=== PATIENT | female | born 1950 | race Caucasian/White ===

== ENCOUNTER 2021-08-02 10:13 | Outpatient (REF) | payer OTHER, SELFPAY ==
--- NOTE | ~2021-08-02 | US_ITS ---
EXAMINATION: US ABDOMEN COMPLETE CLINICAL INFORMATION: Cirrhosis of liver. COMPARISON: Ultrasound abdomen 08/29/2018. Renal ultrasound 02/26/2018. CT abdomen and pelvis 04/08/2010. TECHNIQUE: Real-time imaging of the abdominal viscera. FINDINGS: PANCREAS: Normal. ABDOMINAL AORTA: The proximal, mid, and distal segments are normal in caliber. INFERIOR VENA CAVA: Visualized portions are normal. LIVER: The liver is small measuring 12.2 cm in length. The liver contour is normal. No focal hepatic lesion. There is no intrahepatic biliary duct dilatation seen. Small varices are suspected along the left lobe of liver. Normal hepatopedal flow seen in the middle portal vein. GALLBLADDER: Surgically absent. COMMON BILE DUCT: Normal in caliber measuring 0.4 cm in diameter. RIGHT KIDNEY: There are prominent pyramids. No hydronephrosis. No renal calculi or focal parenchymal lesions. The kidney measures 8.5 cm in maximum dimension. LEFT KIDNEY: There are prominent pyramids. No hydronephrosis. No renal calculi or focal parenchymal lesions. The kidney measures 9.2 cm in maximum dimension. SPLEEN: Normal. The spleen measures 9.5 cm in maximum dimension. FREE FLUID: None. ADDITIONAL FINDINGS: Small varices along the left hepatic lobe suspected. US/US abdomen complete IMPRESSION: Bilateral prominent renal pyramids. Small liver.
== END 2021-08-02 10:14 | disposition home or self-care (01) ==
LOC: HO.US 10:13
PROVIDERS: PCP Internal Medicine Geriatric Medicine; Visit Provider Internal Medicine Geriatric Medicine
DX: K74.60 Unspecified cirrhosis of liver (principal)
CPT/HCPCS: 76700

== ENCOUNTER 2022-05-01 16:04 | Emergency (ER) | payer OTHER, SELFPAY ==
--- NOTE | ~2022-05-01 | CT_ITS ---
EXAMINATION: CT ABDOMEN AND PELVIS WITH CONTRAST CLINICAL INFORMATION: abd pain COMPARISON: 04/08/2010 TECHNIQUE: Multidetector volumetric imaging was performed from the superior aspect of the liver through the pubic symphysis following administration of 85 mL Omnipaque 300 intravenous contrast. Sagittal and coronal reformatted images were obtained on the technologist workstation.. This CT examination was performed using dose optimization techniques as appropriate, variously including the following: *Automated exposure control *Adjustment of mA and/or kV according to patient size (this includes techniques or standardized protocols for targeted exams where dose is matched to indication/reason for exam; i.e. extremities or head) *Use of iterative reconstruction technique DLP: 507 mGy-cm FINDINGS: LUNG BASES: The visualized lung bases are unremarkable. LIVER, GALLBLADDER, AND BILIARY TREE: The liver is normal in size, shape, and attenuation. Small low-attenuation subcentimeter cyst in segment 7 of the liver. No focal hepatic lesion or biliary ductal dilatation is present. The gallbladder is not visualized and presumably surgically absent PANCREAS: Unremarkable. SPLEEN: Unremarkable. ADRENAL GLANDS: Unremarkable. KIDNEYS AND URETERS: The kidneys are normal in size, shape, and attenuation. No hydronephrosis, hydroureter, or calculi seen. No perinephric stranding. BLADDER: Unremarkable. GASTROINTESTINAL TRACT: Extensive colonic diverticulosis is seen more so in the sigmoid colon. Rectosigmoid colon are decompressed. I do not appreciate any pericolonic inflammatory changes to suggest diverticulitis. Visualized small bowel is unremarkable. Stomach is decompressed and unremarkable ABDOMINAL WALL: No significant hernia is appreciated. LYMPHOVASCULAR STRUCTURES: Vascular calcification within the aorta iliac system. Incidental retroaortic left renal vein PELVIC VISCERA: Surgically absent OSSEOUS STRUCTURES: Postoperative changes in the lower lumbar spine again noted CT/CT abdomen pelvis w IV con IMPRESSION: Chronic appearing and postoperative changes as described. I do not appreciate any acute intra-abdominal process.
--- NOTE | 2022-05-01 16:10 | ED.ABDPAIN ---
HPI - Abdominal Pain General Chief Complaint: Abdominal Pain Stated Complaint: ABD PAIN X2 DAYS,DIARRHEA,HIGH BP 197/94 PER EMS Time Seen by Provider: 05/01/22 16:07 Source: patient Mode of arrival: ambulatory Limitations: other (poor historian ) History of Present Illness HPI narrative: This is a 71 year old female history of HLD, HTN, GERD, anxiety, depression, presents via ambulance for nausea, diarrhea ( brown, pure liquid) and LUQ pain X2 days. Reports pain is 8/10, constant in nature non radiating. She tells me she has not eaten anything out of the ordinary and she has not been around any sick contacts. Denies atbx use recently. Denies fevers, chills, cp, sob, vomiting, headache, vission changes, dizziness and weakness. Related Data Previous Rx's Medication Instructions Recorded loperamide 2 mg capsule 2 mg PO Q6H PRN loose stool #30 05/01/22 (Anti-Diarrheal (loperamide)) caps Allergies Allergy/AdvReac Type Severity Reaction Status Date / Time lisinopril [LISINOPRIL] Allergy Intermediate ITCHING Unverified 12/03/19 16:21 polyethylene glycol 3350 Allergy Intermediate RASH Unverified 12/03/19 16:21 [From MIRALAX] valsartan [From DIOVAN] Allergy Intermediate HEADACHE Unverified 12/03/19 16:21 ascorbic acid [Ascorbic Acid] Allergy Mild RASH Unverified 12/03/19 16:21 Sulfa (Sulfonamide Allergy Unknown UNKNOWN Unverified 12/03/19 16:21 Antibiotics) Sulfacet-R Allergy Unknown Uncoded 12/15/18 00:00 Review of Systems Review of Systems Constitutional : No Weight loss, No Fever, No Chills, No Fatigue, No Malaise ENT/Mouth : No sore throat, No Rhinorrhea Eyes: No Eye Pain, No Swelling, No Redness Cardiovascular : No Chest Pain, No SOB, No Dyspnea on Exertion, No Orthopnea, No Edema, No Palpitations Respiratory : No Cough, No Sputum, No Wheezing Gastrointestinal : + Nausea, No Vomiting, + Diarrhea, No Constipation, + abdominal Pain, No Hematochezia, No Melena Genitourinary : No Dysuria, No Urinary Frequency, No Hematuria, Musculoskeletal : No joint pain, No Myalgias, No Joint Swelling Skin : No Skin Lesions, No rash Neuro : No Weakness, No Numbness, No Dizziness, No Headache Psych : No Anxiety/Panic, No Depression All other systems reviewed and are negative Yes all other systems are reviewed and are negative [facility] Past Medical History Attestation statement: The following information was validated with the patient. Source: old records reviewed and nursing notes reviewed Social History Social History Advance Directives: No Advance Directives Information Provided: No Physical Exam ED Vital Signs: Vital Signs - 24 hr 05/01/22 19:20 Temperature 97.8 F Pulse Rate 66 Respiratory Rate 18 Blood Pressure 169/78 H Pulse Oximetry 100 Oxygen Delivery Method Room Air BMI result Body Mass Index 23.8 vss Appearance: Alert.? Oriented X3.? No acute distress.? Head: Normocephalic, atraumatic, no step-offs or deformities Eyes: Pupils equal, round and reactive to light.? Neck: Normal inspection.? Neck supple.? CVS: Normal heart rate and rhythm.? Pulses normal.? Respiratory: No respiratory distress.? Breath sounds normal.? Abdomen: Soft and + diffuse tenderness.? Skin: Skin warm and dry.? Normal skin color.? Normal skin turgor.? Extremities: No lower extremity edema.? No calf ttp. 5/5 strength to bilateral upper and lower extremities Back: No midline tenderness, no C-spine tenderness, full range of motion, no CVA tenderness bilaterally Neuro: Oriented X 3.? No motor deficit.? No sensory deficit. CN 2-12 intact Course Reevaluation(s) Reevaluation #1: Patient's CBC appears to be within normal limits. Chemistry with slightly low sodium however receiving IV fluids at this time. Transaminases slightly elevated however around patient's baseline. Normal lipase unlikely that this is pancreatitis. And UA without infection. COVID negative. CT of the abdomen pelvis with chronic appearing and postoperative changes. No acute intra-abdominal process is identified. Patient feeling slightly better after morphine. Will continue to hydrate and re-evaluate as well as a p.o. challenge. Time: 19:43 Medical Decision Making Medical Decision Making [facility] Narrative: 1612 71 year old female presents w/ nausea, diarrhea, abd pain 2 days. No sick contacts PE w/ diffuse abd tenderness. Normoactive bowel sounds throughout Likely viral. Unlikely diverticulitis, pancreatitis, cholecystitis, appendicitis or acute abdomen Plan- labs,urine, imaging Differential Diagnosis Differential Diagnoses: The differential diagnosis associated with the presentation includes Likely viral. Unlikely diverticulitis, pancreatitis, cholecystitis, appendicitis or acute abdomen Admission/Observation Consideration of admission/observation: Escalation of care including admission/observation considered Lab Data 05/01/22 16:27 05/01/22 16:27 Labs: Lab Results 05/01/22 05/01/22 05/01/22 Range/Units 16:27 16:27 16:27 WBC 7.3 (4.8-10.8) X10*3/uL RBC 4.89 (4.20-5.50) X10*6/uL Hgb 14.4 (12.0-16.0) g/dl Hct 41.4 (37.0-47.0) % MCV 84.7 (80.0-98.0) fL MCH 29.4 (27.0-33.0) pg MCHC 34.8 (31.0-35.0) g/dl RDW 12.3 (11.0-16.0) % Plt Count 185 (160-400) X10*3/uL MPV 9.9 (9.4-12.3) fL Immature Gran % (Auto) 1.4 H (0.0-0.4) % Neut % (Auto) 73.8 H (45-73) % Lymph % (Auto) 18.5 L (20-40) % Ralls % (Auto) 6.1 (2-11) % Eos % (Auto) 0.1 (0-4) % Baso % (Auto) 0.1 (0-2) % Lymph # (Auto) 1.3 (1.2-4.9) X10*3/uL Ralls # (Auto) 0.4 (0.1-1.2) X10*3/uL Eos # (Auto) 0.0 (0.0-0.4) X10*3/uL Baso # (Auto) 0.0 (0.0-0.2) X10*3/uL Abs Immat Gran (auto) 0.10 H (0.00-0.03) X10*3/uL Absolute Neuts (auto) 5.4 (2.0-8.3) x10*3/uL Absolute Nucleated RBC 0.000 (0.0-0.012) X10*3/uL Nucleated RBC % (auto) 0.0 (0.0-0.2) /100WBC Sodium 133 L (135-145) mmol/L Potassium 3.5 (3.3-5.1) mmol/L Chloride 96 (96-108) mmol/L Carbon Dioxide 25 (22-29) mmol/L Anion Gap 16 (12-20) BUN 21 H (9-16) mg/dL Creatinine 1.06 (0.5-1.4) mg/dL Estim Creat Clear Calc TNP Estimated GFR 51 Random Glucose 113 (60-115) mg/dL Calcium 9.8 (8.4-10.2) mg/dL Magnesium 2.1 (1.6-2.6) mg/dL Total Bilirubin 0.8 (0.0-1.0) mg/dL AST 36 H (5-31) U/L ALT 51 H (0-31) U/L Alkaline Phosphatase 73 (39-117) U/L Total Protein 7.6 (6.5-8.0) g/dL Albumin 4.6 (3.5-5.0) g/dL Lipase 68 (8-78) U/L Urine Color Urine Appearance Urine pH (5.0-9.0) Ur Specific [place] (1.005-1.025) Urine Protein (Neg-Trace) mg/dL Urine Glucose (UA) (Negative) mg/dL Urine Ketones (Negative) mg/dL Urine Blood (Negative) Urine Nitrite (Negative) Ur Leukocyte Esterase (Negative) COVID-19 (VISHNU) Negative (Negative) COVID-19 Clin Com See Note 05/01/22 Range/Units 17:34 WBC (4.8-10.8) X10*3/uL RBC (4.20-5.50) X10*6/uL Hgb (12.0-16.0) g/dl Hct (37.0-47.0) % MCV (80.0-98.0) fL MCH (27.0-33.0) pg MCHC (31.0-35.0) g/dl RDW (11.0-16.0) % Plt Count (160-400) X10*3/uL MPV (9.4-12.3) fL Immature Gran % (Auto) (0.0-0.4) % Neut % (Auto) (45-73) % Lymph % (Auto) (20-40) % Ralls % (Auto) (2-11) % Eos % (Auto) (0-4) % Baso % (Auto) (0-2) % Lymph # (Auto) (1.2-4.9) X10*3/uL Ralls # (Auto) (0.1-1.2) X10*3/uL Eos # (Auto) (0.0-0.4) X10*3/uL Baso # (Auto) (0.0-0.2) X10*3/uL Abs Immat Gran (auto) (0.00-0.03) X10*3/uL Absolute Neuts (auto) (2.0-8.3) x10*3/uL Absolute Nucleated RBC (0.0-0.012) X10*3/uL Nucleated RBC % (auto) (0.0-0.2) /100WBC Sodium (135-145) mmol/L Potassium (3.3-5.1) mmol/L Chloride (96-108) mmol/L Carbon Dioxide (22-29) mmol/L Anion Gap (12-20) BUN (9-16) mg/dL Creatinine (0.5-1.4) mg/dL Estim Creat Clear Calc Estimated GFR Random Glucose (60-115) mg/dL Calcium (8.4-10.2) mg/dL Magnesium (1.6-2.6) mg/dL Total Bilirubin (0.0-1.0) mg/dL AST (5-31) U/L ALT (0-31) U/L Alkaline Phosphatase (39-117) U/L Total Protein (6.5-8.0) g/dL Albumin (3.5-5.0) g/dL Lipase (8-78) U/L Urine Color Yellow Urine Appearance Clear Urine pH 8.5 (5.0-9.0) Ur Specific [place] 1.010 (1.005-1.025) Urine Protein Negative (Neg-Trace) mg/dL Urine Glucose (UA) Negative (Negative) mg/dL Urine Ketones Negative (Negative) mg/dL Urine Blood Negative (Negative) Urine Nitrite Negative (Negative) Ur Leukocyte Esterase Negative (Negative) COVID-19 (VISHNU) (Negative) COVID-19 Clin Com Core Measures AMI core measures followed: Yes Measure exclusions: not indicated Medications Administered Discontinued Medications Generic Name Dose Route Start Last Admin Trade Name Freq PRN Reason Stop Dose Admin Iohexol 100 ml 05/01/22 18:44 05/01/22 18:44 Iohexol 350 Mg/Ml 100 Ml Infus..Btl IV 05/01/22 18:45 85 ml ONCE ONE Administration Morphine Sulfate 4 mg 05/01/22 18:46 05/01/22 19:13 Morphine Sulfate 4 Mg/Ml Cartridge IVPUSH 05/01/22 18:47 4 mg ONCE ONE Administration Protocol Critical Care Time Critical Care Time Critical Care Time: No Discharge Plan Discharge Clinical Impression: Abdominal pain, Diarrhea, Viral illness Patient Disposition: Home, Self-Care Instructions: Acute Diarrhea (ED), Viral Syndrome (ED), Abdominal Pain (ED) Additional Instructions: Take your medications as prescribed. If you were prescribed antibiotics today, it is important that you take your medication to their entirety, do not skip any doses, do not finish them early. Follow-up with your primary care provider this week. Follow-up with gastroenterology if pain persists Return to the emergency department with new or worsening symptoms. Such as fevers, chills, chest pain, shortness of breath, nausea, vomiting, dizziness, headache, vision changes, lethargy In case of emergency call 911 Prescriptions: New loperamide [Anti-Diarrheal (loperamide)] 2 mg capsule 2 mg PO Q6H PRN (Reason: loose stool) Qty: 30 0RF [place]: [facility] [place] [facility] [place]Provider Group] - 2 days James Diaz MD [Primary Care Provider] - 2 days Stand Alone Forms: Work/School Release Print Language: Nepali
[2022-05-01 16:39] LABS: MANUAL DIFF FLAG NO
[2022-05-01 16:41] LABS: Basophils Percent Auto 0.1 % (0-2); Eosinophils Percent Auto 0.1 % (0-4); Hematocrit 41.4 % (37.0-47.0); Hemoglobin 14.4 g/dl (12.0-16.0); Imm Gran Pct Auto 1.4 % (0.0-0.4); Lymphocytes Absolute Auto 1.3 X10*3/uL (1.2-4.9); Lymphocytes Percent Auto 18.5 % (20-40); Mean Corpuscular HGB Conc 34.8 g/dl (31.0-35.0); Mean Corpuscular Hemoglobin 29.4 pg (27.0-33.0); Mean Corpuscular Volume 84.7 fL (80.0-98.0); Mean Platelet Volume 9.9 fL (9.4-12.3); Monocytes Absolute Auto 0.4 X10*3/uL (0.1-1.2); Monocytes Percent Auto 6.1 % (2-11); Neutrophils Absolute Auto 5.4 x10*3/uL (2.0-8.3); Neutrophils Percent Auto 73.8 % (45-73); Platelet Count 185 X10*3/uL (160-400); Red Blood Count 4.89 X10*6/uL (4.20-5.50); Red Cell Distribution Width 12.3 % (11.0-16.0); White Blood Count 7.3 X10*3/uL (4.8-10.8)
[2022-05-01 16:55] LABS: Alanine Aminotransferase 51 U/L (0-31); Albumin Level 4.6 g/dL (3.5-5.0); Alkaline Phosphatase 73 U/L (39-117); Anion Gap 16 (12-20); Aspartate Amino Transferase 36 U/L (5-31); Bilirubin Total 0.8 mg/dL (0.0-1.0); Blood Urea Nitrogen 21 mg/dL (9-16); Calcium 9.8 mg/dL (8.4-10.2); Carbon Dioxide 25 mmol/L (22-29); Chloride 96 mmol/L (96-108); Estimated Glomerular Filt Rate 51; Glucose Random 113 mg/dL (60-115); Lipase 68 U/L (8-78); Magnesium 2.1 mg/dL (1.6-2.6); Potassium 3.5 mmol/L (3.3-5.1); Sodium 133 mmol/L (135-145); Total Protein 7.6 g/dL (6.5-8.0)
[2022-05-01 16:57] LABS: COVID-19 Test Negative (Negative); IDNOW Serial# 55D5AD1C
[2022-05-01 17:11] VITALS: BMI 23.8
[2022-05-01 17:55] LABS: Appearance Urine Clear; Color Urine Yellow; Glucose Urine UA Negative (Negative); Leukocyte Esterase Urine Negative (Negative); Nitrite Urine Negative (Negative); PH 8.5 (5.0-9.0); Urine Blood Negative (Negative); Urine Ketones Negative (Negative); Urine Protein Negative (Neg-Trace)
[2022-05-01] MEDS: iohexoL 350 MG/ML 100 ML INFUS..BTL IV (18:44)
[2022-05-01] MEDS: Morphine Sulfate 4 MG/ML CARTRIDGE IVPUSH (19:13)
[2022-05-01 19:20] VITALS: BP 169/78; PULSE 66; RESP 18; TEMP 36.6; O2SAT 100
[2022-05-01] MEDS: 0.9 % Sodium Chloride 1,000 ML 999 ML IV (20:35)
== END 2022-05-01 22:18 | disposition home or self-care (01) ==
PROVIDERS: Physician Assistant; Emergency Provider Student in an Organized Health Care Education/Training Program; PCP Internal Medicine Geriatric Medicine
DX: B34.9 Viral infection, unspecified (principal); R10.13 Epigastric pain; R19.7 Diarrhea, unspecified; Z20.822 Contact with and (suspected) exposure to COVID-19; Z20.828 Contact with and (suspected) exposure to other viral communicable diseases; Z79.899 Other long term (current) drug therapy
CPT/HCPCS: 74177; 80053; 81003; 83690; 83735; 85025; 87635; 96374; 99284; J2270; Q9967

== ENCOUNTER 2022-08-24 21:55 | Emergency (ER) | payer OTHER, SELFPAY ==
--- NOTE | ~2022-08-24 | XR_ITS ---
EXAMINATION: XR RIBS, LEFT CLINICAL INFORMATION: Fall with left rib pain COMPARISON: 02/02/2019 TECHNIQUE: 3 views of the left ribs were obtained. PA view of the chest. FINDINGS: Lungs are clear. No consolidation, pneumothorax, or pleural effusion. The cardiomediastinal silhouette and pulmonary vasculature are normal. Osseous structures are unremarkable. Ribs are intact. No fractures are identified. XR/XR ribs LT min 3V w CXR1V IMPRESSION: Clear lungs. No focal rib abnormality identified.
--- NOTE | ~2022-08-24 | XR_ITS ---
EXAMINATION: XR LUMBOSACRAL SPINE CLINICAL INFORMATION: Fall. Right lower back pain. COMPARISON: None available. TECHNIQUE: Three views of the lumbosacral spine. FINDINGS: Posterior fusion hardware at L4-S1. No acute fracture or subluxation. Grade 1 retrolisthesis of L3 on L4. Endplate osteophytes throughout the lumbar spine. The sacroiliac joints are symmetric. Normal bowel gas pattern. XR/XR lumbar spine 2-3V IMPRESSION: No acute fracture or malalignment. Degenerative changes throughout the lumbar spine.
[2022-08-24 21:59] VITALS: BP 170/100; PULSE 80; O2SAT 99
[2022-08-24 22:05] VITALS: BP 170/100; PULSE 80; O2SAT 99
[2022-08-24 22:10] VITALS: BP 176/84; PULSE 56; RESP 16; TEMP 36; O2SAT 100; BMI 26.4
[2022-08-25] VITALS (16 sets, daily range): BP systolic 121–204; BP diastolic 47–76; PULSE 46–55; RESP 11–18; TEMP 36.3–36.6; O2SAT 95–98
--- NOTE | 2022-08-25 00:34 | ED_ITS ---
HPI - Fall General Chief Complaint: Fall Stated Complaint: ABD PAIN AND AVILA X 1WEEK Time Seen by Provider: 08/25/22 00:25 Source: patient Mode of arrival: wheelchair Limitations: no limitations History of Present Illness HPI Narrative: Patient comes to the emergency room complaining of left-sided rib pain and lower back pain. Patient states that about a week ago, patient fell backwards and the pain in the back has been hurting more. Patient states that she landed on her buttocks, denies head strike, not on blood thinners. Patient states that she has been taking oxycodone without any relief. Patient denies headache, no neck pain, no chest pain or shortness of breath. Patient lives alone and came because she cannot take care of herself to the pain Related Data Home Medications Medication Instructions Recorded Confirmed albuterol sulfate 90 mcg/actuation 2 puff inhalation Q4-6H PRN 08/25/22 08/25/22 aerosol inhaler Wheezing amlodipine 10 mg-valsartan 320 mg 1 tab PO DAILY 08/25/22 08/25/22 tablet atorvastatin 20 mg tablet 20 mg PO DAILY 08/25/22 08/25/22 budesonide 0.5 mg/2 mL suspension 0.5 mg inhalation DAILY 08/25/22 08/25/22 for nebulization cetirizine 10 mg tablet 10 mg PO DAILY 08/25/22 08/25/22 chlorthalidone 50 mg tablet 50 mg PO DAILY 08/25/22 08/25/22 fluticasone propionate 50 1 spray intranasal DAILY 08/25/22 08/25/22 mcg/actuation nasal spray,suspension latanoprost 0.005 % eye drops 1 drp ophthalmic (eye) BEDTIME 08/25/22 08/25/22 metoprolol tartrate 50 mg tablet 50 mg PO BID 08/25/22 08/25/22 mirtazapine 45 mg tablet 45 mg PO BEDTIME 08/25/22 08/25/22 montelukast 10 mg tablet 10 mg PO QPM 08/25/22 08/25/22 oxycodone 15 mg tablet 15 mg PO TID PRN pain 08/25/22 08/25/22 pantoprazole 40 mg tablet,delayed 40 mg PO DAILY 08/25/22 08/25/22 release zolpidem 5 mg tablet 5 mg PO BEDTIME 08/25/22 08/25/22 Previous Rx's Medication Instructions Recorded ketorolac 10 mg tablet 10 mg PO TID PRN pain 5 days #15 08/26/22 tabs lidocaine 5 % topical patch 1 patch topical DAILY PRN pain #15 08/26/22 ea Allergies Allergy/AdvReac Type Severity Reaction Status Date / Time lisinopril [LISINOPRIL] Allergy Intermediate ITCHING Verified 08/25/22 00:54 polyethylene glycol 3350 Allergy Intermediate RASH Verified 08/25/22 00:54 [From MIRALAX] Sulfa (Sulfonamide Allergy Intermediate Itching Verified 08/25/22 00:54 Antibiotics) valsartan [From DIOVAN] Allergy Intermediate HEADACHE Verified 08/25/22 00:54 ascorbic acid [Ascorbic Acid] Allergy Mild RASH Verified 08/25/22 00:54 Sulfacet-R Allergy Intermediate Itching Uncoded 08/25/22 00:54 Review of Systems Review of Systems: Constitutional : No Weight loss, No Fever, No Chills, No Night Sweats, No Fatigue, No Malaise ENT/Mouth : No Hearing loss, No Ear Pain, No Nasal Congestion, No Sinus Pain, No Hoarseness, No sore throat, No Rhinorrhea, No Swallowing Difficulty Eyes: No Eye Pain, No Swelling, No Redness, No Foreign Body, No Discharge, No Vision Changes Cardiovascular : No Chest Pain, No SOB, No Dyspnea on Exertion, No Orthopnea, No Edema, No Palpitations Respiratory : No Cough, No Sputum, No Wheezing, No Smoke Exposure, No Dyspnea Gastrointestinal : No Nausea, No Vomiting, No Diarrhea, No Constipation, No abdominal Pain, No Hematochezia, No Melena Genitourinary : no irregular bleeding, No Dysuria, No Urinary Frequency, No Hematuria, No Urinary Incontinence, No Urgency, No Flank Pain, No Urinary Flow Changes, No Hesitancy Musculoskeletal : Complaining of lower back pain, also complaining of rib pain anterior/inferior left-sided Skin : No Skin Lesions, No rash Neuro : No Weakness, No Numbness, No Paresthesias, No Loss of Consciousness, No Dizziness, No Headache Psych : No Anxiety/Panic, No Depression, No SI/HI/AH/VH, No Social Issues, Heme/Lymph: No Bruising, No Bleeding,No Lymphadenopathy Endocrine : No Polyuria, No Polydipsia, No Temperature Intolerance PMFSH Social History Social History Alcohol intake: never Physical Exam Vital Signs: Vital Signs: Last Vital Signs Temp 98.1 F 08/26/22 05:40 Pulse 55 08/26/22 05:40 Resp 16 08/26/22 05:40 BP 158/77 H 08/26/22 05:40 Pulse Ox 98 08/26/22 05:40 O2 Del Method Room Air 08/26/22 05:40 BMI result Body Mass Index 26.4 Const: Other: Appearance: Alert. Oriented X3. No acute distress. Eyes: Pupils equal, round and reactive to light. ENT: Pharynx normal. Neck: Normal inspection. Neck supple. No lymph nodes noted. No crepitus CVS: Normal heart rate and rhythm. Pulses normal. Normal S1 and S2 Respiratory: No respiratory distress. Breath sounds normal. No Wheezing. No rales Abdomen: Soft and nontender. No rigidity. No distention. -musculoskeletal, pain to palpation over the ribs laterally and frontal, no ecchymosis. Pain to palpation over the sacral area Skin: Skin warm and dry. Normal skin color. Normal skin turgor. Extremities: No lower extremity edema. No Lacerations. No Rash Neuro: Oriented X 3. No motor deficit. No sensory deficit. Moving all extremities. No slurred speech. CN 2 through 12 grossly intact Psych: calm, cooperative, normal affect Course Reevaluation(s) Reevaluation #1: Physician observation will be continued, pending physical therapy evaluation in case management. Vital signs stable. Time: 08:27 Reevaluation #2: Patient evaluated by case management will go home with VNA services. Medications Administered Generic Name Dose Route Start Last Admin Trade Name Freq PRN Reason Stop Dose Admin Amlodipine Besylate 10 mg 08/25/22 09:00 08/26/22 10:28 Amlodipine Besylate 10 Mg Tablet PO 10 mg DAILY KAMLESH Administration Atorvastatin Calcium 20 mg 08/25/22 09:00 08/26/22 10:28 Atorvastatin Calcium 20 Mg Tablet PO 20 mg DAILY KAMLESH Administration Fluticasone Propionate 1 spray 08/25/22 09:00 08/26/22 10:29 Fluticasone Propionate Nasal 16 Gm [place] NOSTRIL-B Not Given DAILY KAMLESH Hydrochlorothiazide 50 mg 08/25/22 09:00 08/25/22 11:40 Hydrochlorothiazide 50 Mg Tablet PO 50 mg DAILY KAMLESH Administration Latanoprost 1 drop 08/25/22 21:00 08/25/22 22:31 Latanoprost 0.005 % Ophth [place] 2.5 Ml Drops EYE-BOTH Not Given BEDTIME KAMLESH Loratadine 10 mg 08/25/22 09:00 08/26/22 10:28 Loratadine 10 Mg Tablet PO 10 mg DAILY KAMLESH Administration Metoprolol Tartrate 50 mg 08/25/22 09:00 08/26/22 10:28 Metoprolol Tartrate 50 Mg Tablet PO 50 mg BID KAMLESH Administration Protocol Mirtazapine 45 mg 08/25/22 21:00 08/25/22 22:27 Mirtazapine 15 Mg Tablet PO 45 mg BEDTIME KAMLESH Administration Montelukast Sodium 10 mg 08/25/22 21:00 08/25/22 22:27 Montelukast Sodium 10 Mg Tablet PO 10 mg BEDTIME KAMLESH Administration Omeprazole 20 mg 08/26/22 06:30 08/26/22 06:11 Omeprazole 20 Mg Capsule.Dr PO 20 mg DAILY@0630 KAMLESH Administration Valsartan 320 mg 08/25/22 09:00 08/25/22 11:40 Valsartan 320 Mg Tablet PO 320 mg DAILY KAMLESH Administration Zolpidem Tartrate 5 mg 08/25/22 21:00 08/25/22 22:31 Zolpidem Tartrate 5 Mg Tablet PO 5 mg BEDTIME KAMLESH Administration Discontinued Medications Generic Name Dose Route Start Last Admin Trade Name Susy PRN Reason Stop Dose Admin Ketorolac Tromethamine 30 mg 08/25/22 01:56 08/25/22 02:06 Ketorolac Tromethamine 30 Mg/Ml Vial IVPUSH 08/25/22 01:57 30 mg ONCE ONE Administration Ketorolac Tromethamine 30 mg 08/25/22 14:31 08/25/22 14:41 Ketorolac Tromethamine 15 Mg/Ml Vial IM 08/25/22 14:32 30 mg ONCE ONE Administration Morphine Sulfate 4 mg 08/25/22 00:48 08/25/22 04:13 Morphine Sulfate 4 Mg/Ml Cartridge IM 08/25/22 00:49 4 mg ONCE ONE Administration Protocol Medical Decision Making Medical Decision Making MDM Narrative: -x-rays of the ribs and lumbar spine do not show any acute abnormality. Patient needs assistance getting out of bed due to the pain. Patient given IM morphine -we will attempt pain management. If this does not work, patient will be seen by Physical therapy and Case Management in the morning. -physician observation started at 00:50 Lab Data 08/25/22 06:05 08/25/22 06:05 Labs: Lab Results 08/25/22 08/25/22 Range/Units 06:05 06:05 WBC 5.3 (4.8-10.8) X10*3/uL RBC 4.21 (4.20-5.50) X10*6/uL Hgb 12.8 (12.0-16.0) g/dl Hct 37.2 (37.0-47.0) % MCV 88.4 (80.0-98.0) fL MCH 30.4 (27.0-33.0) pg MCHC 34.4 (31.0-35.0) g/dl RDW 12.8 (11.0-16.0) % Plt Count 142 L (160-400) X10*3/uL MPV 9.8 (9.4-12.3) fL Immature Gran % (Auto) 0.4 (0.0-0.4) % Neut % (Auto) 53.0 (45-73) % Lymph % (Auto) 36.1 (20-40) % [place] % (Auto) 8.6 (2-11) % Eos % (Auto) 1.5 (0-4) % Baso % (Auto) 0.4 (0-2) % Lymph # (Auto) 1.9 (1.2-4.9) X10*3/uL [place] # (Auto) 0.5 (0.1-1.2) X10*3/uL Eos # (Auto) 0.1 (0.0-0.4) X10*3/uL Baso # (Auto) 0.0 (0.0-0.2) X10*3/uL Abs Immat Gran (auto) 0.02 (0.00-0.03) X10*3/uL Absolute Neuts (auto) 2.8 (2.0-8.3) x10*3/uL Absolute Nucleated RBC 0.000 (0.0-0.012) X10*3/uL Nucleated RBC % (auto) 0.0 (0.0-0.2) /100WBC Sodium 141 (135-145) mmol/L Potassium 3.8 (3.3-5.1) mmol/L Chloride 106 (96-108) mmol/L Carbon Dioxide 26 (22-29) mmol/L Anion Gap 13 (12-20) BUN 18 H (9-16) mg/dL Creatinine 1.13 (0.5-1.4) mg/dL Estim Creat Clear Calc 40.9 Estimated GFR 47 Random Glucose 134 H (60-115) mg/dL Calcium 9.9 (8.4-10.2) mg/dL Total Bilirubin 0.9 (0.0-1.0) mg/dL AST 25 (5-31) U/L ALT 21 (0-31) U/L Alkaline Phosphatase 53 (39-117) U/L Total Protein 7.0 (6.5-8.0) g/dL Albumin 4.2 (3.5-5.0) g/dL Radiology Impression Radiologist Impression: FINDINGS: Lungs are clear. No consolidation, pneumothorax, or pleural effusion. The cardiomediastinal silhouette and pulmonary vasculature are normal. Osseous structures are unremarkable. Ribs are intact. No fractures are identified. XR/XR ribs LT min 3V w CXR1V IMPRESSION: Clear lungs. No focal rib abnormality identified. FINDINGS: Posterior fusion hardware at L4-S1. No acute fracture or subluxation. Grade 1 retrolisthesis of L3 on L4. Endplate osteophytes throughout the lumbar spine. The sacroiliac joints are symmetric. Normal bowel gas pattern. XR/XR lumbar spine 2-3V IMPRESSION: No acute fracture or malalignment. Degenerative changes throughout the lumbar spine. Discharge Plan Discharge Clinical Impression: Rib pain, Lumbar back pain Patient Disposition: Home, Self-Care Additional Instructions: Take your medications as prescribed. If you were prescribed antibiotics today, it is important that you take your medication to their entirety, do not skip any doses, do not finish them early. Follow-up with your primary care provider this week. Return to the emergency department with new or worsening symptoms. Such as fevers, chills, chest pain, shortness of breath, nausea, vomiting, dizziness, headache, vision changes, lethargy In case of emergency call 911 Toradol has been sent to your pharmacy, you tolerated this well in the department. Please take this as prescribed do not take this with ibuprofen, or other NSAIDs, do not mix this with alcohol. Side effects of this medication including increased risk for bleeding and possible kidney injury. Prescriptions: New ketorolac 10 mg tablet 10 mg PO TID PRN (Reason: pain) 5 Days Qty: 15 0RF lidocaine 5 % adhesive patch,medicated 1 patch topical DAILY PRN (Reason: pain) Qty: 15 0RF Rx Instructions: leave on most painful area for up to 12 hrs No Action latanoprost 0.005 % drops 1 drp ophthalmic (eye) BEDTIME atorvastatin 20 mg tablet 20 mg PO DAILY cetirizine 10 mg tablet 10 mg PO DAILY chlorthalidone 50 mg tablet 50 mg PO DAILY oxycodone 15 mg tablet 15 mg PO TID PRN (Reason: pain) pantoprazole 40 mg tablet,delayed release (DR/EC) 40 mg PO DAILY metoprolol tartrate 50 mg tablet 50 mg PO BID budesonide 0.5 mg/2 mL suspension for nebulization 0.5 mg inhalation DAILY mirtazapine 45 mg tablet 45 mg PO BEDTIME montelukast 10 mg tablet 10 mg PO QPM zolpidem 5 mg tablet 5 mg PO BEDTIME albuterol sulfate 90 mcg/actuation HFA aerosol inhaler 2 puff INHALATION Q4-6H PRN (Reason: Wheezing) fluticasone propionate 50 mcg/actuation spray,suspension 1 spray intranasal DAILY amlodipine-valsartan 10-320 mg tablet 1 tab PO DAILY Referrals: Doris MOSER [Outside] Name,MD James [Primary Care Provider] - 1 Week
--- NOTE | 2022-08-25 00:49 | PC.NURSE ---
pt c/o back pain d/t fall at home while trying to hang curtains above her couch, no witnesses present at time of fall, denies head injury, denies blood thinners, down time 15-20 minutes prior to getting self up after fall as stated per pt per provider's instructions had pt ambulate pt unable to ambulate safely and independently without assistance, pt made multiple attempts to grab on to nearby items to keep balance, pt grimaced in pain MD aware meds to follow for pain BP high at 204/72 MD aware meds to follow will CTM pt placed on staff accountant by this nurse
--- NOTE | 2022-08-25 00:56 | PC.NURSE ---
andrews placed by DESTIN Cesar
--- NOTE | 2022-08-25 01:33 | PC.NURSE ---
morphine held pt RR decreases to 7 occasionally to notify
--- NOTE | 2022-08-25 01:41 | PC.NURSE ---
hot packs placed on pt's lower back and L ribs for pain war blanket provided pillow tucked under pt and positioned to R side for comfort
--- NOTE | 2022-08-25 01:46 | PC.NURSE ---
provider aware of pt's RR going below 12 bpm provider wants morphine held ketorolac to follow
--- NOTE | 2022-08-25 01:54 | PC.NURSE ---
IV line access obtained 22g R AC
[2022-08-25] MEDS: Ketorolac Tromethamine 30 MG/ML VIAL IVPUSH (02:06)
--- NOTE | 2022-08-25 02:06 | PC.NURSE ---
administered 30 mg ketorolac IV push per MAR
--- NOTE | 2022-08-25 02:32 | PC.NURSE ---
med rec complete
--- NOTE | 2022-08-25 04:08 | PC.NURSE ---
pt's respirations have remained above 11 bpm, provider now approving admin of morphine order devin twas entered over 3 hrs ago
[2022-08-25] MEDS: Morphine Sulfate 4 MG/ML CARTRIDGE IM (04:13)
--- NOTE | 2022-08-25 04:13 | PC.NURSE ---
administered 4mg morphine IM to R deltoid per MAR
--- NOTE | 2022-08-25 04:22 | PC.NURSE ---
VSS RRR remains wnl after morphine administration per MAR
--- NOTE | 2022-08-25 05:45 | PC.NURSE ---
bp 133/47, provider aware pt sleeping respirations even and unlabored no apparent distress
--- NOTE | 2022-08-25 05:49 | PC.NURSE ---
pt has not had any urine output since arrival to ED room. Tali PCT to do bladder scan
[2022-08-25 06:11] LABS: MANUAL DIFF FLAG NO
[2022-08-25 06:20] LABS: Basophils Percent Auto 0.4 % (0-2); Eosinophils Absolute Auto 0.1 X10*3/uL (0.0-0.4); Eosinophils Percent Auto 1.5 % (0-4); Hematocrit 37.2 % (37.0-47.0); Hemoglobin 12.8 g/dl (12.0-16.0); Imm Gran Abs Auto 0.02 X10*3/uL (0.00-0.03); Imm Gran Pct Auto 0.4 % (0.0-0.4); Lymphocytes Absolute Auto 1.9 X10*3/uL (1.2-4.9); Lymphocytes Percent Auto 36.1 % (20-40); Mean Corpuscular HGB Conc 34.4 g/dl (31.0-35.0); Mean Corpuscular Hemoglobin 30.4 pg (27.0-33.0); Mean Corpuscular Volume 88.4 fL (80.0-98.0); Mean Platelet Volume 9.8 fL (9.4-12.3); Monocytes Absolute Auto 0.5 X10*3/uL (0.1-1.2); Monocytes Percent Auto 8.6 % (2-11); Neutrophils Absolute Auto 2.8 x10*3/uL (2.0-8.3); Platelet Count 142 X10*3/uL (160-400); Red Blood Count 4.21 X10*6/uL (4.20-5.50); Red Cell Distribution Width 12.8 % (11.0-16.0); White Blood Count 5.3 X10*3/uL (4.8-10.8)
[2022-08-25 06:32] LABS: Alanine Aminotransferase 21 U/L (0-31); Albumin Level 4.2 g/dL (3.5-5.0); Alkaline Phosphatase 53 U/L (39-117); Anion Gap 13 (12-20); Aspartate Amino Transferase 25 U/L (5-31); Bilirubin Total 0.9 mg/dL (0.0-1.0); Blood Urea Nitrogen 18 mg/dL (9-16); Calcium 9.9 mg/dL (8.4-10.2); Carbon Dioxide 26 mmol/L (22-29); Chloride 106 mmol/L (96-108); Creatinine Clr Calc Pharmacy 40.9; Estimated Glomerular Filt Rate 47; Glucose Random 134 mg/dL (60-115); Potassium 3.8 mmol/L (3.3-5.1); Sodium 141 mmol/L (135-145)
--- NOTE | 2022-08-25 06:35 | PC.NURSE ---
pt HR occasionally decreases to 47, MD aware
--- NOTE | 2022-08-25 09:00 | PC.NURSE ---
N2N report given to EDWIN Bello
--- NOTE | 2022-08-25 09:06 | MHC.CM.PN ---
CASE MANAGEMENT CONSULT RECEIVED. NO P.T. EVAL AVAILABLE OF THIS NOTE CM TO FOLLOW
[2022-08-25] MEDS: Loratadine 10 MG TABLET PO (11:40)
[2022-08-25] MEDS: Valsartan 320 MG TABLET PO (11:40)
[2022-08-25] MEDS: hydroCHLOROthiazide 50 MG TABLET PO (11:40)
[2022-08-25] MEDS: Atorvastatin Calcium 20 MG TABLET PO (11:41)
[2022-08-25] MEDS: Metoprolol Tartrate 50 MG TABLET PO ×2 (11:41→22:28)
[2022-08-25] MEDS: amLODIPine Besylate 10 MG TABLET PO (11:41)
[2022-08-25] MEDS: Fluticasone Propionate Nasal 16 GM SPRAY 1 SPRAY NOSTRIL-B (11:41)
--- NOTE | 2022-08-25 13:14 | MHC.CM.PN ---
Addendum entered by Rosie Lizama RN 08/25/22 15:52: [facility] OFFERING SERVICES ONCE PCP IS VERIFIED Original Note: PATIENT LIVES ALONE SHE IS INDEPENDENT AT BASELINE NO DME OR VNA SERVICES NO HCP ON FILE PATIENT REPORTS NO FAMILY NEARBY BUT DOES HAVE A FRIEND LOCALLY CASE MANAGEMENT CAN ASSIST WITH HCP IF SHE WOULD LIKE TO DO SO. SHE DOES NOT WISH TO DC TO REHAB. PATIENT HAS DOES NOT HAVE A QUALIFYING STAY TO GET A REHAB BED. SHE AGREES TO REFERRAL TO [facility], NOW PLACED. PATIENT WILL NEED ASSIST WITH TRANSPORT HOME, SHE CAME IN BY AMBULANCE
[2022-08-25] MEDS: Ketorolac Tromethamine 15 MG/ML VIAL 30 MG IM (14:41)
--- NOTE | 2022-08-25 18:24 | PHA.MEDREC ---
Pharmacy Consult ? Medication Reconciliation Pharmacy has completed the medication reconciliation. pharmacy reviewed nurses med rec. Unable to speak to patient. Medications were verified through claim history. Medical record says she has an allergy to valsartan with headache reaction (more of a side effect), however she is taking the amlodipine/valsartan combo and has been filling it for a few months now.
[2022-08-25] MEDS: Mirtazapine 15 MG TABLET 45 MG PO (22:27)
[2022-08-25] MEDS: Montelukast Sodium 10 MG TABLET PO (22:27)
[2022-08-25] MEDS: Zolpidem Tartrate 5 MG TABLET PO (22:31)
[2022-08-26 05:40] VITALS: BP 158/77; PULSE 55; RESP 16; TEMP 36.7; O2SAT 98
[2022-08-26] MEDS: Omeprazole 20 MG CAPSULE.DR PO (06:11)
[2022-08-26] MEDS: Atorvastatin Calcium 20 MG TABLET PO (10:28)
[2022-08-26] MEDS: amLODIPine Besylate 10 MG TABLET PO (10:28)
[2022-08-26] MEDS: Loratadine 10 MG TABLET PO (10:28)
[2022-08-26] MEDS: Metoprolol Tartrate 50 MG TABLET PO (10:28)
[2022-08-26] MEDS: Valsartan 320 MG TABLET PO (10:49)
[2022-08-26] MEDS: hydroCHLOROthiazide 50 MG TABLET PO (10:49)
--- NOTE | 2022-08-26 14:06 | MHC.CM.PN ---
Addendum entered by Rosie Lizama RN 08/26/22 14:16: cancelled ambulance patient is walking and dressing herself. will set up [employer] Original Note: [facility] SCHEDULED FOR APPROX [address] [employer]IST AND PATIENT TO BE MADE AWARE. HOME WITH NEW [facility] SERVICES.
== END 2022-08-26 14:43 | disposition home or self-care (01) ==
PROVIDERS: Emergency Provider Emergency Medicine; PCP Internal Medicine Geriatric Medicine
DX: R07.81 Pleurodynia (principal); M54.50 Low back pain, unspecified; Z79.899 Other long term (current) drug therapy
CPT/HCPCS: 36415; 71101; 72100; 80053; 85025; 96372; 96374; 97162; 99285; J1885; J2270

== ENCOUNTER 2022-09-24 00:57 | Emergency (ER) | payer MEDICARE, SELFPAY ==
[2022-09-24 01:12] VITALS: BP 150/90; BP 181/70; PULSE 57; PULSE 82; RESP 16; TEMP 36.4; O2SAT 98; BMI 29.9
[2022-09-24 01:58] LABS: MANUAL DIFF FLAG NO
[2022-09-24 01:59] LABS: Basophils Percent Auto 0.4 % (0-2); Eosinophils Absolute Auto 0.1 X10*3/uL (0.0-0.4); Eosinophils Percent Auto 1.4 % (0-4); Hemoglobin 12.4 g/dl (12.0-16.0); Imm Gran Abs Auto 0.02 X10*3/uL (0.00-0.03); Imm Gran Pct Auto 0.4 % (0.0-0.4); Lymphocytes Absolute Auto 1.4 X10*3/uL (1.2-4.9); Mean Corpuscular HGB Conc 33.5 g/dl (31.0-35.0); Mean Corpuscular Hemoglobin 29.2 pg (27.0-33.0); Mean Corpuscular Volume 87.3 fL (80.0-98.0); Mean Platelet Volume 10.1 fL (9.4-12.3); Monocytes Absolute Auto 0.4 X10*3/uL (0.1-1.2); Monocytes Percent Auto 7.8 % (2-11); Neutrophils Absolute Auto 3.1 x10*3/uL (2.0-8.3); Platelet Count 150 X10*3/uL (160-400); Red Blood Count 4.24 X10*6/uL (4.20-5.50); Red Cell Distribution Width 12.7 % (11.0-16.0)
[2022-09-24 02:15] LABS: Alanine Aminotransferase 22 U/L (0-31); Albumin Level 4.3 g/dL (3.5-5.0); Alkaline Phosphatase 62 U/L (39-117); Anion Gap 16 (12-20); Aspartate Amino Transferase 27 U/L (5-31); Bilirubin Direct 0.2 mg/dL (0.0-0.5); Bilirubin Total 0.7 mg/dL (0.0-1.0); Blood Urea Nitrogen 19 mg/dL (9-16); Calcium 10.1 mg/dL (8.4-10.2); Carbon Dioxide 25 mmol/L (22-29); Chloride 102 mmol/L (96-108); Creatinine Clr Calc Pharmacy 35.4; Estimated Glomerular Filt Rate 43; Glucose Random 111 mg/dL (60-115); Lipase 54 U/L (8-78); Magnesium 1.9 mg/dL (1.6-2.6); Sodium 139 mmol/L (135-145); Total Protein 7.4 g/dL (6.5-8.0)
[2022-09-24 03:10] VITALS: BP 160/73; PULSE 58; RESP 20; TEMP 36.4; O2SAT 97
--- NOTE | 2022-09-24 03:13 | ED.BACK ---
HPI - Back Pain/Injury General Chief Complaint: Back Pain/Injury Stated Complaint: LOWER BACK PAIN/HIGH BP Time Seen by Provider: 09/24/22 03:12 Source: patient Mode of arrival: EMS Limitations: language barrier (Icelandic speaking only, warp knitter used) History of Present Illness HPI Narrative: 72-year-old female who presents emergency department for evaluation of lower abdominal pain and lower back pain. Patient states she has had the pain for approximately 3 days. She points to her lower abdomen when asked to localize the pain. She describes the pain is a sharp, constant pain which is 10/10. The pain does radiate to her back. Patient states that she has had nausea with 2 episodes of vomiting. She has also had 6 episodes of loose diarrheal stool with no blood in the emesis or diarrhea. She has had urinary frequency and dysuria. She denied fever or chills. She states that she has had no appetite, she has not been able to eat or drink for last 24 hours. She did take oxycodone for the pain but this gave her no relief. Patient states that approximately 1 month ago she fell and injured her lower back. She had lumbar spine x-rays which revealed no fracture but degenerative changes throughout the lumbar spine. She also had a chest x-ray with rib series with no acute fracture noted by the radiologist. Related Data Home Medications Medication Instructions Recorded Confirmed albuterol sulfate 90 mcg/actuation 2 puff inhalation Q4-6H PRN 08/25/22 08/25/22 aerosol inhaler Wheezing amlodipine 10 mg-valsartan 320 mg 1 tab PO DAILY 08/25/22 08/25/22 tablet atorvastatin 20 mg tablet 20 mg PO DAILY 08/25/22 08/25/22 budesonide 0.5 mg/2 mL suspension 0.5 mg inhalation DAILY 08/25/22 08/25/22 for nebulization cetirizine 10 mg tablet 10 mg PO DAILY 08/25/22 08/25/22 chlorthalidone 50 mg tablet 50 mg PO DAILY 08/25/22 08/25/22 fluticasone propionate 50 1 spray intranasal DAILY 08/25/22 08/25/22 mcg/actuation nasal spray,suspension latanoprost 0.005 % eye drops 1 drp ophthalmic (eye) BEDTIME 08/25/22 08/25/22 metoprolol tartrate 50 mg tablet 50 mg PO BID 08/25/22 08/25/22 mirtazapine 45 mg tablet 45 mg PO BEDTIME 08/25/22 08/25/22 montelukast 10 mg tablet 10 mg PO QPM 08/25/22 08/25/22 oxycodone 15 mg tablet 15 mg PO TID PRN pain 08/25/22 08/25/22 pantoprazole 40 mg tablet,delayed 40 mg PO DAILY 08/25/22 08/25/22 release zolpidem 5 mg tablet 5 mg PO BEDTIME 08/25/22 08/25/22 Previous Rx's Medication Instructions Recorded ketorolac 10 mg tablet 10 mg PO TID PRN pain 5 days #15 08/26/22 tabs lidocaine 5 % topical patch 1 patch topical DAILY PRN pain #15 08/26/22 ea Allergies Allergy/AdvReac Type Severity Reaction Status Date / Time lisinopril [LISINOPRIL] Allergy Intermediate ITCHING Verified 08/25/22 00:54 polyethylene glycol 3350 Allergy Intermediate RASH Verified 08/25/22 00:54 [From MIRALAX] Sulfa (Sulfonamide Allergy Intermediate Itching Verified 08/25/22 00:54 Antibiotics) valsartan [From DIOVAN] Allergy Intermediate HEADACHE Verified 08/25/22 00:54 ascorbic acid [Ascorbic Acid] Allergy Mild RASH Verified 08/25/22 00:54 Sulfacet-R Allergy Intermediate Itching Uncoded 08/25/22 00:54 Review of Systems Review of Systems: Yes all other systems are reviewed and are negative [facility] Past Medical History [facility] Narrative: Past medical history: Hypertension, asthma. Surgical history: Cholecystectomy, JULES/BSO, x4. Social history: She denies tobacco, alcohol and drug use Social History Social History Alcohol intake: never Smoked in Last 30 Days: No Use of substances other than those prescribed or required for medical reasons: No Advance Directives: No Advance Directives Information Provided: Yes Physical Exam Vital Signs: Vital Signs: Last Vital Signs Temp 96.8 F 09/24/22 05:31 Pulse 56 09/24/22 05:31 Resp 18 09/24/22 05:31 BP 174/63 H 09/24/22 05:31 Pulse Ox 97 09/24/22 05:31 O2 Del Method Room Air 09/24/22 05:31 BMI result Body Mass Index 29.9 Const: Other: Awake, alert, female patient, she does appear to be in moderate distress secondary to her abdominal and back pain, she answers all questions appropriately HEENT: Head: Yes normal to inspection, Yes normocephalic and Yes atraumatic Ears: external ears normal General nose exam: Normal external nose present Face and sinus: Yes normal facial exam Mouth: Normal oral and palatal mucosa present Throat: Yes posterior oropharynx normal Eyes: General: appearance normal, both eyes and all related structures Pupils: Equal, round and reactive pupils present Neck: Neck: Yes normal visual inspection, Yes no lymphadenopathy, Yes trachea midline and Yes supple Chest: Chest palpation & inspection: normal inspection of the chest and normal palpation of entire chest wall Resp: Effort & Inspection: normal respiratory effort and able to speak in complete sentences Auscultation: clear to auscultation bilaterally Cardio: Rate: regular rate Rhythm: regular rhythm Heart sounds: S1 normal heart sound present, S2 normal heart sound present and no murmurs GI: Other: Patient's abdomen is soft, nondistended, she has normoactive bowel sounds, patient has moderate left lower and suprapubic tenderness and moderate to severe right lower quadrant tenderness, no rebound, no voluntary or involuntary guarding Back/Spine/Pelvis: Other: Patient has no point tenderness palpation over her vertebrae, she has [id number] bilateral paraspinal muscle tenderness in the lumbar sacral area with no spasm Skin: General skin exam: no rashes or lesions noted Neuro: Cranial nerves: Yes CN's II-XII intact bilaterally and Yes Equal, round and reactive pupils present Cognition (Neuro): normal cognition Motor exam (neuro): 5/5 motor strength present throughout Extrem: General: Yes normal to inspection Psych: Appearance: grossly normal Speech and movement: Normal speech and movement present Affect: normal affect Attitude: cooperative Thought process: Normal thought process present Thought content: Normal thought content present Medications Administered Discontinued Medications Generic Name Dose Route Start Last Admin Trade Name Freq PRN Reason Stop Dose Admin Sodium Chloride 1,000 mls @ 999 mls/hr 09/24/22 03:44 09/24/22 05:03 Ns IV 09/24/22 04:44 Infused .Q1H1M STA Infusion Iohexol 85 ml 09/24/22 04:19 07/10/23 04:20 Iohexol 350 Mg/Ml 100 Ml Infus..Btl IV 09/24/22 04:20 85 ml ONCE ONE Administration Morphine Sulfate 4 mg 09/24/22 03:44 09/24/22 03:52 Morphine Sulfate 4 Mg/Ml Cartridge IVPUSH 09/24/22 03:45 4 mg ONCE STA Administration Protocol Morphine Sulfate 4 mg 09/24/22 04:55 09/24/22 05:03 Morphine Sulfate 4 Mg/Ml Cartridge IVPUSH 09/24/22 04:56 4 mg ONCE STA Administration Protocol Ondansetron HCl 4 mg 09/24/22 03:44 09/24/22 03:52 Ondansetron Hcl 4 Mg/2 Ml Vial IVPUSH 09/24/22 03:45 4 mg ONCE ONE Administration Medical Decision Making Medical Decision Making [facility] Narrative: 72-year-old female who presents emergency department for evaluation of lower abdominal pain, back pain, frequency, urgency, dysuria nausea, vomiting and diarrhea x3 days. Patient approximately 1 month prior, seen in the emergency department and had negative lumbar x-rays , chest and rib x-rays. Patient has had no appetite is not been able to eat or drink for the past 24 hours. Vital signs did reveal an elevated blood pressure of 181/70 otherwise unremarkable. Patient's physical examination did reveal significant lower abdominal tenderness. Following tests were ordered by mi CBC, BMP, liver panel, lipase, magnesium, urinalysis, CT scan of the abdomen pelvis with IV contrast. Patient was treated with morphine 4 mg IV and Zofran 4 mg IV. She was also given normal saline x1 L 0608: Patient required a 2nd dose of morphine 4 mg IV and a 3rd dose of morphine 2 mg IV to control her pain Patient's laboratory evaluation was unremarkable and nondiagnostic CT scan of the patient's abdomen pelvis with IV contrast did not reveal a clear cause for the patient's pain Patient's pain is most likely musculoskeletal. Patient was advised to take Tylenol for pain She is prescribed oxycodone by her PCP and she was advised to take this as directed. Was given printed and verbal instructions and discharged home Differential Diagnosis 0352: Differential diagnosis includes was not limited to colitis, appendicitis, pancreatitis, urinary tract infection, pyelonephritis, musculoskeletal back pain Admission/Observation Consideration of admission/observation: Escalation of care including admission/observation considered Lab Data MDM Lab Attestation statement: I reviewed the patient's lab results. My independent interpretation patient's laboratory evaluation is as follows: Thrombocytopenia 150,000-chronic. BMP and liver panel unremarkable. Lipase was normal at 54. Urinalysis pending 09/24/22 01:54 09/24/22 01:54 Labs: Lab Results 09/24/22 09/24/22 09/24/22 Range/Units 01:54 01:54 04:45 WBC 5.0 (4.8-10.8) X10*3/uL RBC 4.24 (4.20-5.50) X10*6/uL Hgb 12.4 (12.0-16.0) g/dl Hct 37.0 (37.0-47.0) % MCV 87.3 (80.0-98.0) fL MCH 29.2 (27.0-33.0) pg MCHC 33.5 (31.0-35.0) g/dl RDW 12.7 (11.0-16.0) % Plt Count 150 L (160-400) X10*3/uL MPV 10.1 (9.4-12.3) fL Immature Gran % (Auto) 0.4 (0.0-0.4) % Neut % (Auto) 62.0 (45-73) % Lymph % (Auto) 28.0 (20-40) % [place] % (Auto) 7.8 (2-11) % Eos % (Auto) 1.4 (0-4) % Baso % (Auto) 0.4 (0-2) % Lymph # (Auto) 1.4 (1.2-4.9) X10*3/uL [place] # (Auto) 0.4 (0.1-1.2) X10*3/uL Eos # (Auto) 0.1 (0.0-0.4) X10*3/uL Baso # (Auto) 0.0 (0.0-0.2) X10*3/uL Abs Immat Gran (auto) 0.02 (0.00-0.03) X10*3/uL Absolute Neuts (auto) 3.1 (2.0-8.3) x10*3/uL Absolute Nucleated RBC 0.000 (0.0-0.012) X10*3/uL Nucleated RBC % (auto) 0.0 (0.0-0.2) /100WBC Sodium 139 (135-145) mmol/L Potassium 4.0 (3.3-5.1) mmol/L Chloride 102 (96-108) mmol/L Carbon Dioxide 25 (22-29) mmol/L Anion Gap 16 (12-20) BUN 19 H (9-16) mg/dL Creatinine 1.23 (0.5-1.4) mg/dL Estim Creat Clear Calc 35.4 Estimated GFR 43 Random Glucose 111 (60-115) mg/dL Calcium 10.1 (8.4-10.2) mg/dL Magnesium 1.9 (1.6-2.6) mg/dL Total Bilirubin 0.7 (0.0-1.0) mg/dL Direct Bilirubin 0.2 (0.0-0.5) mg/dL AST 27 (5-31) U/L ALT 22 (0-31) U/L Alkaline Phosphatase 62 (39-117) U/L Total Protein 7.4 (6.5-8.0) g/dL Albumin 4.3 (3.5-5.0) g/dL Lipase 54 (8-78) U/L Urine Color Yellow Urine Appearance Clear Urine pH 6.5 (5.0-9.0) Ur Specific [place] 1.020 (1.005-1.025) Urine Protein Negative (Neg-Trace) mg/dL Urine Glucose (UA) Negative (Negative) mg/dL Urine Ketones Negative (Negative) mg/dL Urine Blood Negative (Negative) Urine Nitrite Negative (Negative) Ur Leukocyte Esterase Negative (Negative) Radiology Impression Discussion of test interpretation with radiology: I have reviewed the radiologist's reading. Radiologist Impression: CT abdomen pelvis w IV con IMPRESSION: * No acute findings within the abdomen or pelvis to explain the patient's symptomatology. * Left colonic diverticulosis without evidence of diverticulitis. * Cholecystectomy and hysterectomy. Dictated By:Adrian Morrison MD Discharge Plan Discharge Clinical Impression: Abdominal pain, Back pain Patient Disposition: Home, Self-Care Instructions: Abdominal Pain (ED), Back Pain (ED) Additional Instructions: Your blood work was normal. The CT scan of your abdomen pelvis did not reveal a clear cause for your abdominal pain or back pain Take Tylenol (acetaminophen) 500 mg pills, 2 pills every 6 hours as needed for pain or fever. Take your oxycodone as prescribed by your provider Follow-up with your doctor in 2 days. Please return to the emergency department if your symptoms get worse or if you develop any symptoms that are concerning to you. Prescriptions: No Action latanoprost 0.005 % drops 1 drp ophthalmic (eye) BEDTIME atorvastatin 20 mg tablet 20 mg PO DAILY cetirizine 10 mg tablet 10 mg PO DAILY chlorthalidone 50 mg tablet 50 mg PO DAILY oxycodone 15 mg tablet 15 mg PO TID PRN (Reason: pain) pantoprazole 40 mg tablet,delayed release (DR/EC) 40 mg PO DAILY metoprolol tartrate 50 mg tablet 50 mg PO BID budesonide 0.5 mg/2 mL suspension for nebulization 0.5 mg inhalation DAILY mirtazapine 45 mg tablet 45 mg PO BEDTIME montelukast 10 mg tablet 10 mg PO QPM zolpidem 5 mg tablet 5 mg PO BEDTIME albuterol sulfate 90 mcg/actuation HFA aerosol inhaler 2 puff INHALATION Q4-6H PRN (Reason: Wheezing) fluticasone propionate 50 mcg/actuation spray,suspension 1 spray intranasal DAILY amlodipine-valsartan 10-320 mg tablet 1 tab PO DAILY ketorolac 10 mg tablet 10 mg PO TID PRN (Reason: pain) 5 Days Qty: 15 0RF lidocaine 5 % adhesive patch,medicated 1 patch topical DAILY PRN (Reason: pain) Qty: 15 0RF Rx Instructions: leave on most painful area for up to 12 hrs
--- NOTE | 2022-09-24 03:25 | PC.NURSE ---
this rn assumed care of pt craig @ 0100. registered account administrator utilized at this time. pt reports 12/25 pain. pt placed on machine compositor. lab work obtained and sent down to lab.
--- NOTE | 2022-09-24 03:27 | PC.NURSE ---
pt continues to report pain this rn made dr east aware of pt reported pain. per md pt to be seen next. verbal reassurance provided by this rn
--- NOTE | 2022-09-24 03:59 | PC.NURSE ---
this rn placed 20g iv in R AC. pt tolerated well. pt medicated according to may. pt brought down to CT for scan
[2022-09-24 05:31] VITALS: BP 174/63; PULSE 56; RESP 18; TEMP 36; O2SAT 97
--- NOTE | 2022-09-24 06:02 | PC.NURSE ---
this rn walked with pt to restroom. pt prior to arrival unable to walk per ems. pt walked to restroom with standby assist
[2022-09-24 08:09] VITALS: BP 177/60; PULSE 50; RESP 18; TEMP 36.5; O2SAT 98
--- NOTE | 2022-09-24 08:31 | PC.NURSE ---
pt alert and oriented, skin appropriate for ethnicity, respirations even and unlabored, pt reports lower back pain and abd pain 6/10 but denies nausea, pt is up for d/c and stated that she is ready to go home. pt provided with a hospital voucher for the shuttle bus, director medical affairs at bedside
== END 2022-09-24 08:34 | disposition home or self-care (01) ==
PROVIDERS: Physician Assistant; Emergency Provider Emergency Medicine Emergency Medical Services; PCP Internal Medicine Geriatric Medicine
DX: M54.50 Low back pain, unspecified (principal); R35.0 Frequency of micturition; R30.0 Dysuria; R11.2 Nausea with vomiting, unspecified; R10.2 Pelvic and perineal pain; Z79.899 Other long term (current) drug therapy
CPT/HCPCS: 36415; 74177; 80048; 80076; 81003; 83690; 83735; 85025; 96361; 96374; 96375; 96376; 99284; J2270; J2405; Q9967

== ENCOUNTER 2022-10-03 07:44 | Outpatient (REF) | payer MEDICARE, SELFPAY ==
--- NOTE | ~2022-10-03 | US_ITS ---
EXAMINATION: US ABDOMEN LIMITED CLINICAL INFORMATION: Cirrhosis, screen for HCC. COMPARISON: None available. TECHNIQUE: Real-time imaging of the right upper quadrant abdominal viscera. FINDINGS: PANCREAS: The head and body are well seen, the tail is obscured by bowel gas. 0.36 duct is seen in the pancreatic neck. LIVER: The liver is normal in size. The liver contour is normal. Parenchymal echogenicity is normal. 0.7 x 0.4 x 0.5 cm simple cyst is seen in the dome of the right lobe. No imaging follow-up of this finding is recommended. There is no intrahepatic biliary duct dilatation seen. GALLBLADDER: Surgically absent. COMMON BILE DUCT: Normal in caliber measuring 0.7 cm in diameter. RIGHT KIDNEY: Normal. No hydronephrosis. No renal calculi or focal parenchymal lesions. The kidney measures 9.6 cm in maximum dimension. FREE FLUID: None. US/US abdomen limited IMPRESSION: 1. No significant finding within the liver. 2. Prior cholecystectomy. 3. 0.36 cm dilatation of the pancreatic duct in the pancreatic neck.
== END 2022-10-03 07:45 | disposition home or self-care (01) ==
LOC: HO.US 07:44
PROVIDERS: PCP Internal Medicine Geriatric Medicine; Visit Provider Internal Medicine Geriatric Medicine
DX: M79.10 Myalgia, unspecified site (principal); I10 Essential (primary) hypertension; G89.4 Chronic pain syndrome; T46.6X5A Adverse effect of antihyperlipidemic and antiarteriosclerotic drugs, initial encounter
CPT/HCPCS: 76705

== ENCOUNTER 2022-10-20 01:26 | Emergency (ER) | payer MEDICARE, SELFPAY ==
[2022-10-20 01:36] VITALS: BP 160/100; PULSE 68; O2SAT 97; BMI 25.7
--- NOTE | 2022-10-20 01:40 | ED.ABDPAIN ---
HPI - Abdominal Pain General Chief Complaint: Abdominal Pain Stated Complaint: abdominal pain Time Seen by Provider: 10/20/22 01:35 Source: patient Mode of arrival: EMS Limitations: no limitations History of Present Illness HPI narrative: Patient with chronic back pains s/p surgery on oxycodone 15 mg 3 times a day finished her medication 2 days ago since then complaining of more pain radiating from back to the front no nausea no vomiting no diarrhea no fever no chills no urinary complaints Related Data Home Medications Medication Instructions Recorded Confirmed albuterol sulfate 90 mcg/actuation 2 puff inhalation Q4-6H PRN 08/25/22 08/25/22 aerosol inhaler Wheezing amlodipine 10 mg-valsartan 320 mg 1 tab PO DAILY 08/25/22 08/25/22 tablet atorvastatin 20 mg tablet 20 mg PO DAILY 08/25/22 08/25/22 budesonide 0.5 mg/2 mL suspension 0.5 mg inhalation DAILY 08/25/22 08/25/22 for nebulization cetirizine 10 mg tablet 10 mg PO DAILY 08/25/22 08/25/22 chlorthalidone 50 mg tablet 50 mg PO DAILY 08/25/22 08/25/22 fluticasone propionate 50 1 spray intranasal DAILY 08/25/22 08/25/22 mcg/actuation nasal spray,suspension latanoprost 0.005 % eye drops 1 drp ophthalmic (eye) BEDTIME 08/25/22 08/25/22 metoprolol tartrate 50 mg tablet 50 mg PO BID 08/25/22 08/25/22 mirtazapine 45 mg tablet 45 mg PO BEDTIME 08/25/22 08/25/22 montelukast 10 mg tablet 10 mg PO QPM 08/25/22 08/25/22 oxycodone 15 mg tablet 15 mg PO TID PRN pain 08/25/22 08/25/22 pantoprazole 40 mg tablet,delayed 40 mg PO DAILY 08/25/22 08/25/22 release zolpidem 5 mg tablet 5 mg PO BEDTIME 08/25/22 08/25/22 Previous Rx's Medication Instructions Recorded ketorolac 10 mg tablet 10 mg PO TID PRN pain 5 days #15 08/26/22 tabs lidocaine 5 % topical patch 1 patch topical DAILY PRN pain #15 08/26/22 ea oxycodone 15 mg tablet 15 mg PO Q8H PRN pain #10 tabs 10/20/22 Allergies Allergy/AdvReac Type Severity Reaction Status Date / Time lisinopril [LISINOPRIL] Allergy Intermediate ITCHING Verified 08/25/22 00:54 polyethylene glycol 3350 Allergy Intermediate RASH Verified 08/25/22 00:54 [From MIRALAX] Sulfa (Sulfonamide Allergy Intermediate Itching Verified 08/25/22 00:54 Antibiotics) valsartan [From DIOVAN] Allergy Intermediate HEADACHE Verified 08/25/22 00:54 ascorbic acid [Ascorbic Acid] Allergy Mild RASH Verified 08/25/22 00:54 Sulfacet-R Allergy Intermediate Itching Uncoded 08/25/22 00:54 Review of Systems Review of Systems Yes all other systems are reviewed and are negative [facility] Social History Social History Alcohol intake: never Advance Directives: No Advance Directives Information Provided: No Physical Exam ED Vital Signs: Vital Signs - 24 hr 10/20/22 01:45 10/20/22 03:56 Temperature 98.1 F 98.1 F Pulse Rate 63 61 Respiratory Rate 14 14 Blood Pressure 183/80 H 191/75 H Pulse Oximetry 97 98 Oxygen Delivery Method Room Air Room Air BMI result Body Mass Index 25.7 Appearance: Alert. Oriented X3. No acute distress. Eyes: PERRLA, No Nystagmus ENT: Pharynx normal. Oral Mucosa moist Neck: Normal inspection. Neck supple. CVS: Normal heart rate and rhythm. Pulses normal. Respiratory: No respiratory distress. Equal air entry bilateral, no wheezing/rales/rhonchi Abdomen: Soft and nontender. Bowel sounds are present, no mass palpable, no CVA tenderness Skin: Skin warm and dry. Normal skin color. Normal skin turgor. Extremities: No lower extremity edema. No calf tenderness diffuse lumbar spine tenderness Neuro: Oriented X 3. No motor deficit. No sensory deficit.No cerebellar signs , cranial nerves II-XII intact Medical Decision Making Medical Decision Making [facility] Narrative: Patient with chronic low back pain ran out of her oxycodone earlier ambulatory in the ED will give oxycodone advised to follow with a pain clinic Lab Data [facility] Lab Attestation statement: I reviewed the patient's lab results. 10/20/22 01:53 10/20/22 01:53 Labs: Lab Results 10/20/22 10/20/22 Range/Units 01:53 01:53 WBC 4.5 L (4.8-10.8) X10*3/uL RBC 4.26 (4.20-5.50) X10*6/uL Hgb 12.7 (12.0-16.0) g/dl Hct 37.2 (37.0-47.0) % MCV 87.3 (80.0-98.0) fL MCH 29.8 (27.0-33.0) pg MCHC 34.1 (31.0-35.0) g/dl RDW 13.0 (11.0-16.0) % Plt Count 139 L (160-400) X10*3/uL MPV 9.4 (9.4-12.3) fL Immature Gran % (Auto) 0.4 (0.0-0.4) % Neut % (Auto) 56.6 (45-73) % Lymph % (Auto) 32.8 (20-40) % [place] % (Auto) 8.5 (2-11) % Eos % (Auto) 1.3 (0-4) % Baso % (Auto) 0.4 (0-2) % Lymph # (Auto) 1.5 (1.2-4.9) X10*3/uL [place] # (Auto) 0.4 (0.1-1.2) X10*3/uL Eos # (Auto) 0.1 (0.0-0.4) X10*3/uL Baso # (Auto) 0.0 (0.0-0.2) X10*3/uL Abs Immat Gran (auto) 0.02 (0.00-0.03) X10*3/uL Absolute Neuts (auto) 2.5 (2.0-8.3) x10*3/uL Absolute Nucleated RBC 0.000 (0.0-0.012) X10*3/uL Nucleated RBC % (auto) 0.0 (0.0-0.2) /100WBC Sodium 137 (135-145) mmol/L Potassium 3.9 (3.3-5.1) mmol/L Chloride 102 (96-108) mmol/L Carbon Dioxide 23 (22-29) mmol/L Anion Gap 16 (12-20) BUN 16 (9-16) mg/dL Creatinine 1.07 (0.5-1.4) mg/dL Estim Creat Clear Calc 42.7 Estimated GFR 50 Random Glucose 114 (60-115) mg/dL Calcium 9.7 (8.4-10.2) mg/dL Total Bilirubin 0.5 (0.0-1.0) mg/dL AST 28 (5-31) U/L ALT 26 (0-31) U/L Alkaline Phosphatase 66 (39-117) U/L Total Protein 7.8 (6.5-8.0) g/dL Albumin 4.6 (3.5-5.0) g/dL Lipase 55 (8-78) U/L Medications Administered Discontinued Medications Generic Name Dose Route Start Last Admin Trade Name Freq PRN Reason Stop Dose Admin Oxycodone HCl 10 mg 10/20/22 03:34 10/20/22 03:57 Oxycodone Hcl Immed Release 5 Mg Tablet PO 10/20/22 03:35 10 mg ONCE ONE Administration Discharge Plan Discharge Clinical Impression: Chronic back pain Patient Disposition: Home, Self-Care Instructions: Chronic Back Pain (DC) Additional Instructions: Continue pain medications and follow-up with your PCP Prescriptions: New oxycodone 15 mg tablet 15 mg PO Q8H PRN (Reason: pain) Qty: 10 0RF Rx Instructions: Partial Fill upon patient request. No Action latanoprost 0.005 % drops 1 drp ophthalmic (eye) BEDTIME atorvastatin 20 mg tablet 20 mg PO DAILY cetirizine 10 mg tablet 10 mg PO DAILY chlorthalidone 50 mg tablet 50 mg PO DAILY oxycodone 15 mg tablet 15 mg PO TID PRN (Reason: pain) pantoprazole 40 mg tablet,delayed release (DR/EC) 40 mg PO DAILY metoprolol tartrate 50 mg tablet 50 mg PO BID budesonide 0.5 mg/2 mL suspension for nebulization 0.5 mg inhalation DAILY mirtazapine 45 mg tablet 45 mg PO BEDTIME montelukast 10 mg tablet 10 mg PO QPM zolpidem 5 mg tablet 5 mg PO BEDTIME albuterol sulfate 90 mcg/actuation HFA aerosol inhaler 2 puff INHALATION Q4-6H PRN (Reason: Wheezing) fluticasone propionate 50 mcg/actuation spray,suspension 1 spray intranasal DAILY amlodipine-valsartan 10-320 mg tablet 1 tab PO DAILY ketorolac 10 mg tablet 10 mg PO TID PRN (Reason: pain) 5 Days Qty: 15 0RF lidocaine 5 % adhesive patch,medicated 1 patch topical DAILY PRN (Reason: pain) Qty: 15 0RF Rx Instructions: leave on most painful area for up to 12 hrs Interventions: ED Discharge Assessment Last Done: 10/20/22 04:08 Discharge Date/Time: 10/20/22 04:08
[2022-10-20 01:45] VITALS: BP 183/80; PULSE 63; RESP 14; TEMP 36.7; O2SAT 97
[2022-10-20 01:57] LABS: MANUAL DIFF FLAG NO
[2022-10-20 02:00] LABS: Basophils Percent Auto 0.4 % (0-2); Eosinophils Absolute Auto 0.1 X10*3/uL (0.0-0.4); Eosinophils Percent Auto 1.3 % (0-4); Hematocrit 37.2 % (37.0-47.0); Hemoglobin 12.7 g/dl (12.0-16.0); Imm Gran Abs Auto 0.02 X10*3/uL (0.00-0.03); Imm Gran Pct Auto 0.4 % (0.0-0.4); Lymphocytes Absolute Auto 1.5 X10*3/uL (1.2-4.9); Lymphocytes Percent Auto 32.8 % (20-40); Mean Corpuscular HGB Conc 34.1 g/dl (31.0-35.0); Mean Corpuscular Hemoglobin 29.8 pg (27.0-33.0); Mean Corpuscular Volume 87.3 fL (80.0-98.0); Mean Platelet Volume 9.4 fL (9.4-12.3); Monocytes Absolute Auto 0.4 X10*3/uL (0.1-1.2); Monocytes Percent Auto 8.5 % (2-11); Neutrophils Absolute Auto 2.5 x10*3/uL (2.0-8.3); Neutrophils Percent Auto 56.6 % (45-73); Platelet Count 139 X10*3/uL (160-400); Red Blood Count 4.26 X10*6/uL (4.20-5.50); White Blood Count 4.5 X10*3/uL (4.8-10.8)
[2022-10-20 02:17] LABS: Alanine Aminotransferase 26 U/L (0-31); Albumin Level 4.6 g/dL (3.5-5.0); Alkaline Phosphatase 66 U/L (39-117); Anion Gap 16 (12-20); Aspartate Amino Transferase 28 U/L (5-31); Bilirubin Total 0.5 mg/dL (0.0-1.0); Blood Urea Nitrogen 16 mg/dL (9-16); Calcium 9.7 mg/dL (8.4-10.2); Carbon Dioxide 23 mmol/L (22-29); Chloride 102 mmol/L (96-108); Creatinine Clr Calc Pharmacy 42.7; Estimated Glomerular Filt Rate 50; Glucose Random 114 mg/dL (60-115); Lipase 55 U/L (8-78); Potassium 3.9 mmol/L (3.3-5.1); Sodium 137 mmol/L (135-145); Total Protein 7.8 g/dL (6.5-8.0)
[2022-10-20 03:56] VITALS: BP 191/75; PULSE 61; RESP 14; TEMP 36.7; O2SAT 98
[2022-10-20] MEDS: oxyCODONE HCl Immed Release 5 MG TABLET 10 MG PO (03:57)
--- NOTE | 2022-10-20 04:06 | PC.NURSE ---
Pt aox4 resting at the bedside reporting back pain, 12/25. Medicated as ordered. Pt tolerated well. Discharge instructions reviewed with pt. Pt verbalizes understanding.
== END 2022-10-20 04:08 | disposition home or self-care (01) ==
PROVIDERS: Emergency Provider Internal Medicine; PCP Internal Medicine Geriatric Medicine
DX: G89.29 Other chronic pain (principal); M54.50 Low back pain, unspecified; Z79.891 Long term (current) use of opiate analgesic
CPT/HCPCS: 36415; 80053; 83690; 85025; 99283; 99284

== ENCOUNTER 2022-12-12 13:42 | Outpatient (REF) | payer MEDICARE, SELFPAY ==
[2022-12-12 16:02] LABS: MANUAL DIFF FLAG NO
[2022-12-12 16:09] LABS: Basophils Percent Auto 0.7 % (0-2); Eosinophils Absolute Auto 0.1 X10*3/uL (0.0-0.4); Eosinophils Percent Auto 1.2 % (0-4); Hematocrit 41.4 % (37.0-47.0); Hemoglobin 13.7 g/dl (12.0-16.0); Imm Gran Abs Auto 0.02 X10*3/uL (0.00-0.03); Imm Gran Pct Auto 0.3 % (0.0-0.4); Lymphocytes Absolute Auto 1.1 X10*3/uL (1.2-4.9); Lymphocytes Percent Auto 19.5 % (20-40); Mean Corpuscular HGB Conc 33.1 g/dl (31.0-35.0); Mean Corpuscular Volume 90.8 fL (80.0-98.0); Mean Platelet Volume 10.3 fL (9.4-12.3); Monocytes Absolute Auto 0.5 X10*3/uL (0.1-1.2); Monocytes Percent Auto 7.7 % (2-11); Neutrophils Absolute Auto 4.1 x10*3/uL (2.0-8.3); Neutrophils Percent Auto 70.6 % (45-73); Platelet Count 191 X10*3/uL (160-400); Red Blood Count 4.56 X10*6/uL (4.20-5.50); Red Cell Distribution Width 13.4 % (11.0-16.0); White Blood Count 5.9 X10*3/uL (4.8-10.8)
[2022-12-12 16:22] LABS: Anion Gap 14 (12-20); Blood Urea Nitrogen 17 mg/dL (9-16); Calcium 10.1 mg/dL (8.4-10.2); Carbon Dioxide 27 mmol/L (22-29); Chloride 103 mmol/L (96-108); Estimated Glomerular Filt Rate 41; Potassium 4.2 mmol/L (3.3-5.1); Sodium 140 mmol/L (135-145)
[2022-12-12 16:39] LABS: Vitamin D 25-OH Total 37.5 ng/mL (>30)
[2022-12-12 17:35] LABS: Creatinine Urine 366.45 mg/dL; Microalbum/Creatinine Ratio Ur 66.3 ug/mg cr (<30); Protein/Creatinine Ratio, Ur 0.15 (<0.2); Total Protein Urine Random 56 mg/dL (<12)
[2022-12-13 16:19] LABS: Calcium (PTHI) 9.8 mg/dL (8.6-10.4); PTHI 70 pg/mL (16-77)
== END 2022-12-12 13:43 | disposition home or self-care (01) ==
LOC: HO.HHCL 13:42
PROVIDERS: Visit Provider Internal Medicine Nephrology
DX: N18.31 Chronic kidney disease, stage 3a (principal); E55.9 Vitamin D deficiency, unspecified
CPT/HCPCS: 36415; 80051; 82043; 82306; 82310; 82565; 82570; 83970; 84156; 84520; 84550; 85025

== ENCOUNTER 2023-01-17 14:27 | Outpatient (REF) | payer MEDICARE, SELFPAY ==
[2023-01-17 16:43] LABS: TSH reflex Free T4 1.54 uIU/mL (0.32-4.0)
== END 2023-01-17 14:28 | disposition home or self-care (01) ==
LOC: HO.HHCL 14:27
PROVIDERS: Visit Provider Internal Medicine Geriatric Medicine
DX: R25.1 Tremor, unspecified (principal)
CPT/HCPCS: 36415; 84443

== ENCOUNTER 2023-05-13 14:43 | Outpatient (REF) | payer MEDICARE, SELFPAY ==
[2023-05-13 16:40] LABS: Anion Gap 15 (12-20); Blood Urea Nitrogen 31 mg/dL (9-16); Calcium 9.9 mg/dL (8.4-10.2); Carbon Dioxide 26 mmol/L (22-29); Chloride 104 mmol/L (96-108); Estimated Glomerular Filt Rate 48; Glucose Random 92 mg/dL (60-115); Magnesium 2.1 mg/dL (1.6-2.6); Potassium 4.1 mmol/L (3.3-5.1); Sodium 141 mmol/L (135-145)
== END 2023-05-13 14:44 | disposition home or self-care (01) ==
LOC: HO.HHCL 14:43
PROVIDERS: Visit Provider Internal Medicine Geriatric Medicine
DX: I10 Essential (primary) hypertension (principal)
CPT/HCPCS: 36415; 80048; 83735

== ENCOUNTER 2023-06-07 18:18 | Outpatient (REF) | payer MEDICARE, SELFPAY ==
[2023-06-07 19:50] LABS: Influenza A PCR NEGATIVE (Negative); Influenza B PCR NEGATIVE (Negative); Resp Syncy Virus RNA Qual PCR NEGATIVE (Negative); SARS COV2 PCR INHOUSE NEGATIVE (Negative)
== END 2023-06-07 18:19 | disposition home or self-care (01) ==
LOC: HO.HHCLNP 18:18
PROVIDERS: Visit Provider Student in an Organized Health Care Education/Training Program
DX: J06.9 Acute upper respiratory infection, unspecified (principal)
CPT/HCPCS: 0241U

== ENCOUNTER 2023-08-09 12:11 | Outpatient (REF) | payer MEDICARE, SELFPAY ==
[2023-08-09 13:38] LABS: Anion Gap 13 (12-20); Blood Urea Nitrogen 22 mg/dL (9-16); Calcium 10.5 mg/dL (8.4-10.2); Carbon Dioxide 29 mmol/L (22-29); Chloride 98 mmol/L (96-108); Estimated Glomerular Filt Rate 51; Glucose Random 132 mg/dL (60-115); Potassium 4.1 mmol/L (3.3-5.1); Sodium 136 mmol/L (135-145)
== END 2023-08-09 12:12 | disposition home or self-care (01) ==
LOC: HO.HHCL 12:11
PROVIDERS: Visit Provider Internal Medicine Geriatric Medicine
DX: I10 Essential (primary) hypertension (principal)
CPT/HCPCS: 36415; 80048

== ENCOUNTER 2023-08-26 16:24 | Emergency (ER) | payer MEDICARE, SELFPAY ==
--- NOTE | 2023-08-26 | ECG_ITS ---
Test Reason : CP Blood Pressure : / mmHG Vent. Rate : 050 BPM Atrial Rate : 050 BPM P-R Int : 160 ms QRS Dur : 088 ms QT Int : 468 ms P-R-T Axes : 071 074 -06 degrees QTc Int : 426 ms Sinus bradycardia T wave abnormality, consider lateral ischemia Abnormal ECG When compared with ECG of 12-AUG-2009 07:43, T wave inversion now evident in Anterolateral leads Referred By: Generic ED Physician Electronically Signed By:MICK JAMES
--- NOTE | ~2023-08-26 | XR_ITS ---
EXAMINATION: XR CHEST CLINICAL INFORMATION: Chest pain COMPARISON: Previous chest x-ray August 2022 TECHNIQUE: Frontal view of the chest was obtained. FINDINGS: No significant abnormality is noted involving the heart, lungs, mediastinum, bony thorax or soft tissues. XR/XR chest 1V IMPRESSION: Unremarkable examination.
[2023-08-26 17:14] VITALS: BP 120/70; PULSE 56; O2SAT 97
[2023-08-26 17:30] VITALS: BP 100/64; PULSE 52; RESP 16; TEMP 36.7; O2SAT 97; BMI 28.0
--- NOTE | 2023-08-26 17:38 | ED_ITS ---
HPI - Chest Pain General Chief Complaint: Chest Pain Stated Complaint: chest pains and headaches, per ems Time Seen by Provider: 08/26/23 17:30 Source: patient Mode of arrival: ambulatory Limitations: no limitations History of Present Illness ED Provider: alba AMBROSE narrative: Patient history of hypertension and migraine comes here for 2 days of sharp left-sided chest pain with headache no nausea no vomiting no fever pain is sharp in character on localized to left 2nd intercostal space no fever no chills no cough also having mild headache in the frontal area at slight nausea earlier patient received aspirin and nitro by EMS chest pain sharp in character increases on palpation and movement Related Data Home Medications ?Medication ?Instructions ?Recorded ?Confirmed albuterol sulfate 90 mcg/actuation 2 puff inhalation Q4-6H PRN 08/25/22 08/25/22 aerosol inhaler Wheezing amlodipine 10 mg-valsartan 320 mg 1 tab PO DAILY 08/25/22 08/25/22 tablet atorvastatin 20 mg tablet 20 mg PO DAILY 08/25/22 08/25/22 budesonide 0.5 mg/2 mL suspension 0.5 mg inhalation DAILY 08/25/22 08/25/22 for nebulization cetirizine 10 mg tablet 10 mg PO DAILY 08/25/22 08/25/22 chlorthalidone 50 mg tablet 50 mg PO DAILY 08/25/22 08/25/22 fluticasone propionate 50 1 spray intranasal DAILY 08/25/22 08/25/22 mcg/actuation nasal spray,suspension latanoprost 0.005 % eye drops 1 drp ophthalmic (eye) BEDTIME 08/25/22 08/25/22 metoprolol tartrate 50 mg tablet 50 mg PO BID 08/25/22 08/25/22 mirtazapine 45 mg tablet 45 mg PO BEDTIME 08/25/22 08/25/22 montelukast 10 mg tablet 10 mg PO QPM 08/25/22 08/25/22 oxycodone 15 mg tablet 15 mg PO TID PRN pain 08/25/22 08/25/22 pantoprazole 40 mg tablet,delayed 40 mg PO DAILY 08/25/22 08/25/22 release zolpidem 5 mg tablet 5 mg PO BEDTIME 08/25/22 08/25/22 Previous Rx's ?Medication ?Instructions ?Recorded ketorolac 10 mg tablet 10 mg PO TID PRN pain 5 days #15 08/26/22 tabs lidocaine 5 % topical patch 1 patch topical DAILY PRN pain #15 08/26/22 ea oxycodone 15 mg tablet 15 mg PO Q8H PRN pain #10 tabs 10/20/22 Allergies Allergy/AdvReac Type Severity Reaction Status Date / Time lisinopril [LISINOPRIL] Allergy Intermediate ITCHING Verified 08/26/23 17:31 polyethylene glycol 3350 Allergy Intermediate RASH Verified 08/26/23 17:31 [From MIRALAX] Sulfa (Sulfonamide Allergy Intermediate Itching Verified 08/26/23 17:31 Antibiotics) valsartan [From DIOVAN] Allergy Intermediate HEADACHE Verified 08/26/23 17:31 ascorbic acid [Ascorbic Acid] Allergy Mild RASH Verified 08/26/23 17:31 Sulfacet-R Allergy Intermediate Itching Uncoded 08/26/23 17:30 Review of Systems 2 Review of Systems: Yes all other systems are reviewed and are negative [facility] Social History Social History Alcohol intake: never Advance Directives: No Advance Directives Information Provided: No Do you have a plan to hurt others: No Plan Physical Exam 2 Vital Signs: Vital Signs: Last Vital Signs Temp 98.1 F 08/26/23 17:30 Pulse 52 08/26/23 17:30 Resp 16 08/26/23 17:30 BP 100/64 08/26/23 17:30 Pulse Ox 97 08/26/23 17:30 O2 Del Method Room Air 08/26/23 17:30 BMI result Body Mass Index 28.0 Appearance: Alert. Oriented X3. No acute distress. Eyes: PERRLA, No Nystagmus ENT: Pharynx normal. Oral Mucosa moist Neck: Normal inspection. Neck supple. CVS: Normal heart rate and rhythm. Pulses normal. Left 2nd intercostal space local tenderness on palpation Respiratory: No respiratory distress. Equal air entry bilateral, no wheezing/rales/rhonchi Abdomen: Soft and nontender. Bowel sounds are present, no mass palpable, no CVA tenderness Skin: Skin warm and dry. Normal skin color. Normal skin turgor. Extremities: No lower extremity edema. No calf tenderness Neuro: Oriented X 3. No motor deficit. 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 08/26/23 18:39 08/26/23 18:39 Labs: Lab Results 08/26/23 Range/Units 18:39 WBC 5.1 (4.8-10.8) X10*3/uL RBC 4.46 (4.20-5.50) X10*6/uL Hgb 13.6 (12.0-16.0) g/dl Hct 39.0 (37.0-47.0) % MCV 87.4 (80.0-98.0) fL MCH 30.5 (27.0-33.0) pg MCHC 34.9 (31.0-35.0) g/dl RDW 12.4 (11.0-16.0) % Plt Count 159 L (160-400) X10*3/uL MPV 10.4 (9.4-12.3) fL Immature Gran % (Auto) 0.2 (0.0-0.4) % Neut % (Auto) 71.5 (45-73) % Lymph % (Auto) 21.0 (20-40) % [place] % (Auto) 6.3 (2-11) % Eos % (Auto) 0.8 (0-4) % Baso % (Auto) 0.2 (0-2) % Lymph # (Auto) 1.1 L (1.2-4.9) X10*3/uL [place] # (Auto) 0.3 (0.1-1.2) X10*3/uL Eos # (Auto) 0.0 (0.0-0.4) X10*3/uL Baso # (Auto) 0.0 (0.0-0.2) X10*3/uL Abs Immat Gran (auto) 0.01 (0.00-0.03) X10*3/uL Absolute Neuts (auto) 3.6 (2.0-8.3) x10*3/uL Absolute Nucleated RBC 0.000 (0.0-0.012) X10*3/uL Nucleated RBC % (auto) 0.0 (0.0-0.2) /100WBC Sodium 139 (135-145) mmol/L Potassium 3.3 (3.3-5.1) mmol/L Chloride 101 (96-108) mmol/L Carbon Dioxide 31 H (22-29) mmol/L Anion Gap 10 L (12-20) BUN 25 H (9-16) mg/dL Creatinine 1.07 (0.5-1.4) mg/dL Estim Creat Clear Calc 43.8 Estimated GFR 50 Random Glucose 112 (60-115) mg/dL Calcium 10.2 (8.4-10.2) mg/dL Total Bilirubin 0.6 (0.0-1.0) mg/dL AST 29 (5-31) U/L ALT 28 (0-31) U/L Alkaline Phosphatase 60 (39-117) U/L Troponin I High Sens 15.4 (<3.5-17.0) ng/L Total Protein 7.9 (6.5-8.0) g/dL Albumin 4.6 (3.5-5.0) g/dL Independent Interpretation I performed an independent interpretation of an: EKG Interpretation: Sinus bradycardia heart rate 50 beats per minute normal interval normal axis nonspecific ST T wave changes no acute ST elevation or ischemia Discharge Plan Discharge Clinical Impression: Atypical chest pain Patient Disposition: Home, Self-Care Instructions: Chest Wall Pain (ED) Additional Instructions: Continue taking medication Follow-up with your high school art teacher/PCP Continue your oxycodone for pain Prescriptions: No Action latanoprost 0.005 % drops 1 drp ophthalmic (eye) BEDTIME atorvastatin 20 mg tablet 20 mg PO DAILY cetirizine 10 mg tablet 10 mg PO DAILY chlorthalidone 50 mg tablet 50 mg PO DAILY oxycodone 15 mg tablet 15 mg PO TID PRN (Reason: pain) pantoprazole 40 mg tablet,delayed release (DR/EC) 40 mg PO DAILY metoprolol tartrate 50 mg tablet 50 mg PO BID budesonide 0.5 mg/2 mL suspension for nebulization 0.5 mg inhalation DAILY mirtazapine 45 mg tablet 45 mg PO BEDTIME montelukast 10 mg tablet 10 mg PO QPM zolpidem 5 mg tablet 5 mg PO BEDTIME albuterol sulfate 90 mcg/actuation HFA aerosol inhaler 2 puff INHALATION Q4-6H PRN (Reason: Wheezing) fluticasone propionate 50 mcg/actuation spray,suspension 1 spray intranasal DAILY amlodipine-valsartan 10-320 mg tablet 1 tab PO DAILY ketorolac 10 mg tablet 10 mg PO TID PRN (Reason: pain) 5 Days Qty: 15 0RF lidocaine 5 % adhesive patch,medicated 1 patch topical DAILY PRN (Reason: pain) Qty: 15 0RF Rx Instructions: leave on most painful area for up to 12 hrs oxycodone 15 mg tablet 15 mg PO Q8H PRN (Reason: pain) Qty: 10 0RF Rx Instructions: Partial Fill upon patient request. Print Language: Maltese
[2023-08-26 18:44] LABS: MANUAL DIFF FLAG NO
[2023-08-26 18:45] LABS: Basophils Percent Auto 0.2 % (0-2); Eosinophils Percent Auto 0.8 % (0-4); Hemoglobin 13.6 g/dl (12.0-16.0); Imm Gran Abs Auto 0.01 X10*3/uL (0.00-0.03); Imm Gran Pct Auto 0.2 % (0.0-0.4); Lymphocytes Absolute Auto 1.1 X10*3/uL (1.2-4.9); Mean Corpuscular HGB Conc 34.9 g/dl (31.0-35.0); Mean Corpuscular Hemoglobin 30.5 pg (27.0-33.0); Mean Corpuscular Volume 87.4 fL (80.0-98.0); Mean Platelet Volume 10.4 fL (9.4-12.3); Monocytes Absolute Auto 0.3 X10*3/uL (0.1-1.2); Monocytes Percent Auto 6.3 % (2-11); Neutrophils Absolute Auto 3.6 x10*3/uL (2.0-8.3); Neutrophils Percent Auto 71.5 % (45-73); Platelet Count 159 X10*3/uL (160-400); Red Blood Count 4.46 X10*6/uL (4.20-5.50); Red Cell Distribution Width 12.4 % (11.0-16.0); White Blood Count 5.1 X10*3/uL (4.8-10.8)
[2023-08-26 19:01] LABS: Alanine Aminotransferase 28 U/L (0-31); Albumin Level 4.6 g/dL (3.5-5.0); Alkaline Phosphatase 60 U/L (39-117); Anion Gap 10 (12-20); Aspartate Amino Transferase 29 U/L (5-31); Bilirubin Total 0.6 mg/dL (0.0-1.0); Blood Urea Nitrogen 25 mg/dL (9-16); Calcium 10.2 mg/dL (8.4-10.2); Carbon Dioxide 31 mmol/L (22-29); Chloride 101 mmol/L (96-108); Creatinine Clr Calc Pharmacy 43.8; Estimated Glomerular Filt Rate 50; Glucose Random 112 mg/dL (60-115); Potassium 3.3 mmol/L (3.3-5.1); Sodium 139 mmol/L (135-145); Total Protein 7.9 g/dL (6.5-8.0)
[2023-08-26 19:08] LABS: Troponin-I High Sensitivity 15.4 ng/L (<3.5-17.0)
[2023-08-26] MEDS: Ketorolac Tromethamine 30 MG/ML VIAL IVPUSH (19:55)
[2023-08-26 20:20] VITALS: PULSE 61
[2023-08-26 21:18] VITALS: BP 149/68; PULSE 62; RESP 16; TEMP 36.8; O2SAT 98
--- NOTE | 2023-08-26 21:20 | PC.NURSE ---
Patient requested to be discharged to a waiting room reporting that she will wait for a ride back home by her family from the waiting room.
== END 2023-08-26 21:24 | disposition home or self-care (01) ==
PROVIDERS: Emergency Provider Internal Medicine; PCP Internal Medicine Geriatric Medicine
DX: R07.89 Other chest pain (principal); I10 Essential (primary) hypertension
CPT/HCPCS: 36415; 71045; 80053; 84484; 85025; 93005; 96374; 99284; 99285; J1885

== ENCOUNTER → 2023-08-26 17:26 | Outpatient (BNV) | payer MEDICARE, SELFPAY | PROVIDERS: Emergency Provider Internal Medicine; PCP Internal Medicine Geriatric Medicine; Visit Provider Internal Medicine | DX: R07.9 Chest pain, unspecified (principal); R00.1 Bradycardia, unspecified; R94.31 Abnormal electrocardiogram [ECG] [EKG] | CPT/HCPCS: 93010 ==

== ENCOUNTER 2023-11-26 14:58 | Outpatient (REF) | payer MEDICARE, SELFPAY ==
[2023-11-26 17:01] LABS: Anion Gap 14 (12-20); Blood Urea Nitrogen 22 mg/dL (9-16); Carbon Dioxide 24 mmol/L (22-29); Chloride 105 mmol/L (96-108); Estimated Glomerular Filt Rate 42; Glucose Random 107 mg/dL (60-115); Potassium 4.1 mmol/L (3.3-5.1); Sodium 139 mmol/L (135-145)
== END 2023-11-26 14:59 | disposition home or self-care (01) ==
LOC: HO.HHCL 14:58
PROVIDERS: Visit Provider Internal Medicine Geriatric Medicine
DX: I10 Essential (primary) hypertension (principal)
CPT/HCPCS: 36415; 80048

== ENCOUNTER 2024-03-05 16:13 | Outpatient (REF) | payer MEDICARE, SELFPAY ==
[2024-03-05 17:41] LABS: Anion Gap 12 (12-20); Blood Urea Nitrogen 19 mg/dL (9-16); Calcium 9.5 mg/dL (8.4-10.2); Carbon Dioxide 31 mmol/L (22-29); Chloride 101 mmol/L (96-108); Estimated Glomerular Filt Rate 37; Glucose Random 112 mg/dL (60-115); Sodium 140 mmol/L (135-145)
== END 2024-03-05 16:14 | disposition home or self-care (01) ==
LOC: HO.HHCL 16:13
PROVIDERS: Visit Provider Internal Medicine Geriatric Medicine
DX: I10 Essential (primary) hypertension (principal)
CPT/HCPCS: 36415; 80048

== ENCOUNTER 2024-12-28 11:30 | Outpatient (REF) | payer MEDICARE, SELFPAY ==
--- OUTSIDE RECORDS SUMMARY | 2024-12-28 12:18 | XMS_ITS | Encounter Summary ---
Author Organization [facility], Address [address] [place] [address] Phone Care Team Providers Care Offset Platemaker Name Role Phone Uriah Martinez MD Primary Care Provider [phone] Encounter Details Date Type Department Care Team (Late st Contact Info) Description 12/14/2022 Documentation Only [facility], [address] [place] [phone] Uriah Martinez MD [address] [place] [phone] Social History Tobacco Use Types Packs/Day Years Used Date Smoking Tobacco: Never Comments Unknown Sex and Gender Information Value Date Recorded Sex Assigned at Not on file Legal Sex Female 4:32 PM EST Gender Identity Not on file Sexual Orientation Not on file documented as of this encounter Plan of Treatment Not on file documented as of this encounter Visit Diagnoses Not on filedocumented in this encounter Care Teams Offset Platemaker Relationship Specialty Start Date End Date Uriah Martinez MD [address] [place] [phone] PCP - General Nephrology 07/20/22 documented as of this encounter
--- OUTSIDE RECORDS SUMMARY | 2024-12-28 12:18 | XMS_ITS | Encounter Summary ---
Author Organization [employer] Address [address] [place] [address] 7[address] [place] [address] Care Team Providers Care Card Seller Name Role Phone Name, James REED Primary Care Provider [phone] Meri Vladez PharmD Unavailable [phone] Reason for Visit * Reason Onset Date Comments Nurse Triage 06/14/2023 Encounter Details Date Type Department Care Team ([facility] st Contact Info) Description 06/14/2023 Telephone [facility] MEDICINE [address] [place], [place] [phone] Name, MD James [address] [place], [place] [phone] Nurse Triage Social History Tobacco Use Types Packs/Day Years Used Date Smoking Tobacco: Never Smokeless Tobacco: Never Alcohol Use Standard Drinks/Week Comments Never 0 (1 standard drink = 0.6 oz pur e alcohol) Depression Answer Date Recorded Patient Health Questionnaire-9 Score 0 09/11/2022 Housing Stability Answer Date Recorded What is your housing situation today? I have gal lynn 01/03/[address] you li ve. Do you have problems with any of the following? None of the above 01/03/2023 Food Insecurity Answer Date Recorded Within the past 12 months, y ou worried that your food would run out before you got money to buy more: Never True 01/03/2023 Within the past 12 months,th e food you bought just didn't last and you didn't have enough money to get more: Never True Transportation Answer Date Recorded In the past 12 months, has l ack of transportation kept you from medical appts, meetings, work or from getting things needed for daily living? No 01/03/2023 Utilities Answer Date Recorded In the past 12 months, has t he electric, gas, oil or water company threatened to shut off services in your home? No 01/03/2023 Depression Answer Date Recorded Patient Health Questionnaire-2 Score 0 09/11/2022 Comments Unknown Sex and Gender Information Value Date Recorded Sex Assigned at Female 01/15/2022 10:17 AM EDT Legal Sex Female 10:17 AM EDT Gender Identity Female 01/15/2022 10:17 AM EDT Sexual Orientation Straight 01/15/2022 10 :17 AM EDT documented as of this encounter Functional Status * Over the last 2 weeks, how often have you been bothered by any of the following problems? Question Answer Date of Assessment Author Feeling nervous, anxious, or on edge 3 05/17 3:57 PM EDT Jocy Bazzi, PhD Not being able to stop or co ntrol worrying 3 06/14/2023 3:57 PM EDT Jocy Bazzi, Ph D Worrying too much about diff erent things 0 06/14/2023 3:57 PM EDT Jocy Bazzi, Ph D Trouble relaxing 1 06/14/2023 3:57 PM EDT Jocy Gabriel, PhD Being so restless that it is hard to sit still 1 06/14/2023 3:57 PM EDT Jocy Bazzi, Ph D Becoming easily annoyed or irritable 1 05/17 3:57 PM EDT Jocy Bazzi, PhD Feeling afraid as if somethi ng awful might happen 0 06/14/2023 3:57 PM EDT Jocy Bazzi, Ph D RANDY-7 Total Score 9 06/14/2023 3:57 PM EDT Jocy Bazzi, PhD documented as of this encounter Miscellaneous Notes * Telephone Encounter - Justine Jackson RN - 06/14/2023 2:14 PM EDT Triage call with [employer] ID [id number], [place], Pt reports high blood pressure. BP this Am is 175/88 early AM was 163/41. Pt reports headaches somedizziness and feeling of agitation at times. Pt does report a problem at home. Which Pt reports , I will tell you about it when I come in . Pt has next apt with PCP 08/08. Pt is advised to come to [facility] today to be seen by provider and have BP checked. Pt reports taking BP med amlodipine 10mg and diovan 320mg as prescribed . Pt reports drinking adequate liquids. Pt insurance is verified as active .Pt agrees with dispostion . Hours of [facility] given open till 400pm. Protocol Used: Blood Pressure - High (Adult) Protocol-Based Disposition: See in Office or Video Visit Today Video visit not offered Positive Triage Question: * Patient wants to be seen * All higher-acuity triage questions were negative Care Advice Discussed: * High Blood Pressure * High Blood Pressure - Lifestyle Modifications * How to Check Your Blood Pressure? * Reasons To Call Back - Headache, blurred vision, difficulty talking, or difficulty walking occurs - Chest pain or difficulty breathing occurs - You want to go into the office for a blood pressure check - You become worse * Telephone Encounter - Sloane Koenig - 06/14/2023 1:28 PM EDT Symptoms: High Blood Pressure - Caller Reports, Headache Outcome: Schedule a same-day appointment or talk to a nurse or provider today Reason: Caller denied all higher acuity questions The caller accepted this outcome Ghanaian speaker documented in this encounter Plan of Treatment Upcoming Encounters Date Type Department Care Team (Late st Contact Info) Description 12/31/2024 1:30 PM EDT Telemedicine [facility] MEDICINE [address] [place] [address] 01/27/2025 2:30 PM EST Medication Management [address] [address] Meri Valdez, JohnD [address] [place] [address] 02/09/2025 1:00 PM EST Office Visit [address] [address] Name, MD James [address] [place] [address] documented as of this encounter Goals Goal Patient Goal Type Associated Problems Recent Progress Patient-Stated? Author Blood Pressure < 140/90 Blood Pressure 178/74( 025 1:18 PM EDT) No Puia, Meri, PharmD Record your blood pressure daily Blood Pressure No Meri Valdez, PharmD documented as of this encounter Visit Diagnoses Not on filedocumented in this encounter Additional Health Concerns Assessment Noted Time PHQ-9 Depression Total Score: 0 09/12/19 23 1:41 PM EDT documented as of this encounter Care Teams Card Seller Relationship Specialty Start Date End Date Name, MD James [address] [place] [address] PCP - General Family Medicine 05/20/15 Meri Valdez, PharmD [address] [place] [address] Pharmacist Internal Medicine 09/26/21 12/19/23 Doris VNA 07/07/24 documented as of this encounter
--- OUTSIDE RECORDS SUMMARY | 2024-12-28 12:18 | XMS_ITS | Encounter Summary ---
Author Organization [facility], Address [address] [place] [address] Phone Care Team Providers Care Care Mgr Name Role Phone Uriah Martinez MD Primary Care Provider Encounter Details Date Type Department Care Team (Late st Contact Info) Description 12/14/2022 Documentation Only [facility], [address] [place] [phone] Uriah Martinez MD [address] [facility] [place] [phone] Social History Tobacco Use Types Packs/Day Years [...] on filedocumented in this encounter Care Teams Care Mgr Relationship Specialty Start Date End Date Uriah Martinez MD [address] [place] [phone] PCP - General Nephrology 07/20/22 documented as of this encounter
--- OUTSIDE RECORDS SUMMARY | 2024-12-28 12:18 | XMS_ITS | Encounter Summary ---
Author Organization [email or web address] Address [address] [facility] 7t [place] [address] Care Team Providers Care Senior Case Manager Name Role Phone Name, James REED Primary Care Provider [phone] Meri Valdez PharmD Unavailable [phone] Reason for Visit * Reason Comments Med Refill Encounter Details Date Type Department Care Team ([facility] st Contact Info) Description 09/24/[address] [facility] MEDICINE [address] [place], [place] [phone] Name, MD James [address] [place], [place] [phone] Social History Tobacco Use Types Packs/Day Years [...] AM EDT documented as of this encounter Plan of Treatment Upcoming Encounters Date Type Department Care Team (Late st Contact Info) Description 12/31/2024 1:30 PM EDT Telemedicine [address] [address] 01/27/2025 2:30 PM EST Medication Management [address] [address] PuiaJulietasa, PharmD [address] [place] [address] 02/09/2025 1:00 PM EST Office Visit [address] [address] Name, MD James [address] [place] [address] documented as of this encounter Goals Goal Patient Goal Type Associated Problems Recent Progress Patient-Stated? Author Blood Pressure < 140/90 Blood Pressure 178/74( 025 1:18 PM EDT) No Puia, Meri, PharmD Record your blood pressure daily Blood Pressure No Puia, Meri, PharmD documented as of this encounter Visit Diagnoses Not on filedocumented in this encounter Additional Health Concerns Assessment Noted Time PHQ-9 Depression Total Score: 0 09/12/19 23 1:41 PM EDT documented as of this encounter Care Teams Senior Case Manager Relationship Specialty Start Date End Date James Diaz MD [address] [place] [address] PCP - General Family Medicine 05/20/15 Meri Valdez, PharmD [address] [place] [address] Pharmacist Internal Medicine 09/26/21 12/19/23 Doris MOSER 07/07/24 documented as of this encounter
--- OUTSIDE RECORDS SUMMARY | 2024-12-28 12:18 | XMS_ITS | Encounter Summary ---
Author Organization [facility], Address [address] [place] [address] Phone Care Team Providers Care Med Surg Rn Name Role Phone Uriah Martinez MD Primary Care Provider Encounter Details Date Type Department Care Team (Late st Contact Info) Description 10/29/2022 Documentation Only [facility], [address] [place] [phone] Svitlana Torres PA [address] [place] [phone] Social History Tobacco Use Types Packs/Day Years [...] on filedocumented in this encounter Care Teams Med Surg Rn Relationship Specialty Start Date End Date Uriah Martinez MD [address] [place] [address] [address] [place] [phone] PCP - General Nephrology 07/20/22 documented as of this encounter
--- OUTSIDE RECORDS SUMMARY | 2024-12-28 12:18 | XMS_ITS | Encounter Summary ---
Author Organization [employer] Address [address] [facility] 7t [place] [address] Care Team Providers Care Crm Campaign Manager Name Role Phone Name, James REED Primary Care Provider [phone] Meri Valdez PharmD Unavailable [phone] Reason for Visit * Reason Comments Med Refill Encounter Details Date Type Department Care Team ([facility] st Contact Info) Description 06/14/2023 Refill [facility] [address] [place], [place] [phone] [facility] [address] [place], [place] [phone] Essential hypertension Social History Tobacco Use Types Packs/Day Years [...] Bazzi, PhD documented as of this encounter Plan of Treatment Upcoming Encounters Date Type Department Care Team (Late st Contact Info) Description 12/31/2024 1:30 PM EDT Telemedicine [facility] MEDICINE [address] [place] [address] 01/27/2025 2:30 PM EST Medication Management [facility] MEDICINE [address] [place] [address] Meri Valdez, PharmD [address] [place] [address] 02/09/2025 1:00 PM EST Office Visit [facility] [place] [address] Name, [place] [address] documented as of this encounter Goals Goal Patient Goal Type Associated Problems Recent Progress Patient-Stated? Author Blood Pressure < 140/90 Blood Pressure 178/74( 025 1:18 PM EDT) No Meri Valdez PharmD Record your blood pressure daily Blood Pressure No Meri Valdez PharmD documented as of this encounter Visit Diagnoses Diagnosis Essential hypertension Unspecified essential hypertension documented in this encounter Additional Health Concerns Assessment Noted Time PHQ-9 Depression Total Score: 0 09/12/19 23 1:41 PM EDT documented as of this encounter Care Teams Crm Campaign Manager Relationship Specialty Start Date End Date Name, MD James [address] [place] [address] PCP - General Family Medicine 05/20/15 Meri Valdez, PharmD [address] [place] [address] Pharmacist Internal Medicine 09/26/21 12/19/23 Doris AYERSA 07/07/24 documented as of this encounter
--- OUTSIDE RECORDS SUMMARY | 2024-12-28 12:18 | XMS_ITS | Encounter Summary ---
Author Organization [employer] Address [address] [facility] 7t [place] [address] Care Team Providers Care Machine Maintenance Technician Name Role Phone Name, James REED Primary Care Provider [phone] Reason for Visit * Reason Comments Med Refill Encounter Details Date Type Department Care Team ([facility] st Contact Info) Description 07/13/2024 Refill [facility] MEDICINE [address] [place], [place] [phone] Name, MD James [address] [place], [place] [phone] Social History Tobacco Use Types Packs/Day Years Used Date Smoking Tobacco: Never Smokeless Tobacco: Never Alcohol Use Standard Drinks/Week Comments Never 0 (1 standard drink = 0.6 oz pur e alcohol) Depression Answer Date Recorded Patient Health Questionnaire-9 Score 3 03/05/2024 Patient Health Questionnaire-9 Score 3 03/05/2024 Last PHQ-9: Questionnaire Data Not on file 1 05/06/2023 Housing Stability Answer Date Recorded What is your housing situation today? I have gal lynn 03/05/[address] you li ve. Do you have problems with any of the following? None of the above 03/05/2024 Food Insecurity Answer Date Recorded Within the past 12 months, y ou worried that your food would run out before you got money to buy more: Never True 03/05/2024 Within the past 12 months,th e food [...] shut off services in your home? No 03/05/2024 Depression Answer Date Recorded Patient Health Questionnaire-2 Score 2 03/05/2024 Internet Access Answer Date Recorded Internet Access Q1 No 03/05/2024 Internet Access Q2 I do not want or need it 02/15 Comments Unknown Sex and Gender Information Value Date Recorded Sex Assigned at Female 01/15/2022 10:17 AM EDT Legal Sex Female 10:17 AM EDT Gender Identity Female 01/15/2022 10:17 AM EDT Sexual Orientation Straight 01/15/2022 10 :17 AM EDT documented as of this encounter Plan of Treatment Upcoming Encounters Date Type Department Care Team (Late st Contact Info) Description 12/31/2024 1:30 PM EDT Telemedicine [address] [address] 01/27/2025 2:30 PM EST Medication Management [address] [address] Puia, Meri, PharmD [address] [place] [address] 02/09/2025 1:00 PM EST Office Visit [address] [address] James Diaz MD [address] [place] [address] documented as of this encounter Goals Goal [...] Assessment Noted Time PHQ-9 Depression Total Score: 3 03/05/20 24 3:37 PM EST documented as of this encounter Care Teams Machine Maintenance Technician Relationship Specialty Start Date End Date James Diaz MD [address] [place] [address] PCP - General Family Medicine 05/20/15 Doris MOSER 07/07/24 documented as of this encounter
--- OUTSIDE RECORDS SUMMARY | 2024-12-28 12:18 | XMS_ITS | Encounter Summary ---
Author Organization [facility], Address [address] [place] [address] Phone Care Team Providers Care Slab Conditioner Supervisor Name Role Phone Uriah Martinez MD Primary Care Provider [phone] Encounter Details Date Type Department Care Team (Late st Contact Info) Description 12/14/2022 Documentation Only [facility], - [address] Lillie ALFAR[address] [place] [address] Uriah Martinez MD [address] [place] [address] [place] [id number] Social History Tobacco Use Types Packs/Day Years [...] on filedocumented in this encounter Care Teams Slab Conditioner Supervisor Relationship Specialty Start Date End Date Uriah Martinez MD Lillie ALF[address] [place] [address] PCP - General Nephrology 07/20/22 documented as of this encounter
--- OUTSIDE RECORDS SUMMARY | 2024-12-28 12:19 | XMS_ITS | Encounter Summary ---
Author Organization [facility], Address [address] [place] [address] Phone Care Team Providers Care Senior Project Coordinator Name Role Phone Uriah Martinez MD Primary Care Provider [phone] Reason for Visit * Reason Comments Med Refill Encounter Details Date Type Department Care Team (Late st Contact Info) Description 05/13/2019 Refill [facility] [address] [place] [address] Karen Valera PA Social History Tobacco Use Types Packs/Day Years [...] on filedocumented in this encounter Care Teams Senior Project Coordinator Relationship Specialty Start Date End Date Uriah Martinez MD [address] [phone] PCP - General Nephrology 07/20/22 documented as of this encounter
--- OUTSIDE RECORDS SUMMARY | 2024-12-28 12:19 | XMS_ITS | Encounter Summary ---
Author Organization [employer] Address [address] [facility] 7t [place] [address] Care Team Providers Care Incident Analyst Name Role Phone Name, James REED Primary Care Provider [phone] Reason for Visit * Reason Onset Date Comments Hospital Follow-up 10/26/2024 Encounter Details Date Type Department Care Team ([facility] st Contact Info) Description 10/26/2024 Telephone [facility] MEDICINE [address] [place] [address] Name, MD James [address] [place], [place] [phone] Hospital Follow-up Social History Tobacco Use Types Packs/Day Years [...] AM EDT documented as of this encounter Miscellaneous Notes * Telephone Encounter - Afia Sy - 10/26/2024 11:01 AM EDT Tc from pt requesting a HDF appt. Hospital: [facility] Date of admission: 10/15/24 Discharge date: 10/25/24 Diagnosed: Pt stated high blood pressure, cardiac, vomiting, headache. pt didn't provide specific diagnosis. documented in this encounter Plan of Treatment Upcoming Encounters Date Type Department Care Team (Late st Contact Info) Description 12/31/2024 1:30 PM EDT Telemedicine [address] [address] 01/27/2025 2:30 PM EST Medication Management [address] [address] Meri Valdez, PharmD [address] [place] [address] 02/09/2025 1:00 PM EST Office Visit [address] [address] Name, MD James [address] [place] [address] documented as of this encounter Goals Goal [...] documented as of this encounter Care Teams Incident Analyst Relationship Specialty Start Date End Date Name, MD James [address] [place] [address] PCP - General Family Medicine 05/20/15 Doris MOSER 07/07/24 documented as of this encounter
--- OUTSIDE RECORDS SUMMARY | 2024-12-28 12:19 | XMS_ITS | Encounter Summary ---
Author Organization [employer] Address [address] [place] [address] 7t [place] [address] Care Team Providers Care Trade Promotion Analyst Name Role Phone Name, James REED Primary Care Provider [phone] Reason for Visit * Reason Onset Date Comments Nurse Triage 11/18/2024 Encounter Details Date Type Department Care Team (Late st Contact Info) Description 11/18/2024 Telephone [facility] MEDICINE [address] [place] [address] Name, MD James [address] [place], [place] [phone] Nurse Triage Social History Tobacco Use Types [...] Telephone Encounter - Justine Jackson RN - 11/18/2024 12:29 PM EDT Triage [place] [facility] [id number], Shawn Pt reports was prescribed remeron 7.5mg 11/12/24. Pt has taken this medication for 4 days. Pt reports adverse symptoms of diarrhea and tinitus. Pt decided to stop this medication. Pt is advised will forward this information to PCP and nursing team for prn follow up and Pt agrees with this plan. Protocol Used: Medication Question Call (Adult) Protocol-Based Disposition: Callback or Video Visit by PCP Today Video visit not offered Positive Triage Question: * Caller has NON-URGENT medicine question about med that primary care doctor (or JOINERS SUPERVISOR/PA) or specialist prescribed and triager unable to answer question * All higher-acuity triage questions were negative Care Advice Discussed: * Reasons To Call Back - You have any more questions - You become worse * Telephone Encounter - Mehdi Mcfadden - 11/18/2024 10:22 AM EDT Symptom: Medication Reaction Outcome: Schedule an urgent appointment (within 1 hour) or talk to a nurse or provider soon Reason: Caller denied all higher acuity questions Please contact pt at [phone]. (Citizen Of [place] Speaker) documented in this encounter Plan of Treatment Upcoming Encounters Date Type Department Care Team (Late st Contact Info) Description 12/31/2024 1:30 PM EDT Telemedicine [address] [address] 01/27/2025 2:30 PM EST Medication Management [address] [address] PuiaTankMeri, PharmD [address] [place] [address] 02/09/2025 1:00 PM EST Office Visit [address] [phone] NameJames MD [address] [place] [address] documented as of this encounter Goals Goal [...] documented as of this encounter Care Teams Trade Promotion Analyst Relationship Specialty Start Date End Date Name, MD James [address] [place] [phone] PCP - General Family Medicine [facility]15 [facility] documented as of this encounter
--- OUTSIDE RECORDS SUMMARY | 2024-12-28 12:19 | XMS_ITS | Encounter Summary ---
Author Organization [employer] Address [address] [place] [address] 7t [place] [address] Care Team Providers Care Management Developer Name Role Phone Name, James REED Primary Care Provider Meri Valdez PharmD Unavailable [phone] Encounter Details Date Type Department Care Team (Late Contact Info) Description 04/10/2022 Telephone [facility] MEDICINE [address] [place] [phone] Name, MD James [address] [place] [address] Social History Tobacco Use Types Packs/Day Years Used Date Smoking Tobacco: Never Assessed Comments Unknown Sex and Gender Information Value Date Recorded Sex Assigned at Female 01/15/2022 10:17 AM EDT Legal Sex Female 10:17 AM EDT Gender Identity Female 01/15/2022 10:17 AM EDT Sexual Orientation Straight 01/15/2022 10 :17 AM EDT COVID-19 Exposure Response Date Recorded In the last 10 days, have yo u been in contact with someone who was confirmed or suspected to have Coronavirus/COVID-19? No / Unsure 03/21/2022 1:06 PM EST documented as of this encounter Plan of Treatment Upcoming Encounters Date Type Department Care Team (Late Contact Info) Description 12/31/2024 1:30 PM EDT Telemedicine [facility] MEDICINE [address] [place] [phone] 01/27/2025 2:30 PM EST Medication Management [facility]INE [address] [place] [address] [phone] Puia Meri, PharmD [address] [place] [address] 02/09/2025 1:00 PM EST Office Visit [facility] MEDICINE [address] [place] [address] Name, [place] [address] documented as of this encounter Visit Diagnoses Not on filedocumented in this encounter Care Teams Management Developer Relationship Specialty Start Date End Date Name, [place] [address] PCP - General Family Medicine 05/20/15 [place] [address] Pharmacist Internal Medicine 09/26/21 12/19/23 Doris AYERSA 07/07/24 documented as of this encounter
--- OUTSIDE RECORDS SUMMARY | 2024-12-28 12:19 | XMS_ITS | Encounter Summary ---
Author Organization [employer] Address [address] [place] [address] 7t [place] [address] Care Team Providers Care Director Of Event Management Name Role Phone Name, James REED Primary Care Provider [phone] Meri Valdez PharmD Unavailable [phone] Encounter Details Date Type Department Care Team ([facility] Contact Info) Description 08/09/2022 Abstract [facility] MEDICINE [address] [place] [address] [phone] Name, MD James [address] [place] [phone] Social History Tobacco Use Types Packs/Day Years [...] was confirmed or suspected to have Coronavirus/COVID-19? Unable to assess 07/31/2022 2:02 PM EDT documented as of this encounter Plan of Treatment Upcoming Encounters Date Type Department Care Team ([facility] Contact Info) Description 12/31/2024 1:30 PM EDT Telemedicine [facility] [address] [place] [phone] 01/27/2025 2:30 PM EST Medication Management [facility] [address] [place] [address] [phone] Puia Meri, PharmD [address] [place] [address] 02/09/2025 1:00 PM EST Office Visit [facility] [address] [place] [address] Name, [place] [address] documented as of this encounter Goals Goal Patient Goal Type Associated Problems Recent Progress Patient-Stated? Author Blood Pressure < 140/90 Blood Pressure 178/74( 025 1:18 PM EDT) No Puia, Meri, PharmD Record your blood pressure daily Blood Pressure No Puia, Meri, PharmD documented as of this encounter Visit Diagnoses Not on filedocumented in this encounter Care Teams Director Of Event Management Relationship Specialty Start Date End Date Name, [place] [address] PCP - General Family Medicine 05/20/15 Puia, Meri, [place] [address] Pharmacist Internal Medicine 09/26/21 12/19/23 Doris [facility] 07/07/24 documented as of this encounter
--- OUTSIDE RECORDS SUMMARY | 2024-12-28 12:19 | XMS_ITS | Clinical Summary ---
Author Organization [employer] Address [address] [place] [address] 7[address] [place] [address] Care Team Providers Care Parts Room Clerk Name Role Phone Name, James REED Primary Care Provider [phone] Allergies Active Allergy Reactions Criticality Noted Date Comments Ascorbate Rash Low 08/25/2022 Chlorzoxazone 09/04/2022 Other reaction(s): C/O: itching Lisinopril Itching High 11/01/2015 Other reaction(s): headache, itching, Other (see comments) Polyethylene Glycol 03/24/2019 Other reaction(s): itching, Other (see comments) Polyethylene Glycol 3350 Rash High 05/20/2015 Sulfa Antibiotics Itching High 05/20/2015 Other reaction(s): Other (see comments) Sulfacetamide Sodium-Sulfur Itching High 08/26/19 23 Medications * This document contains information received from the source organization and may not represent a complete record from that organization. albuterol (2.5 MG/3ML) 0.083% nebulizer solution inhale 3 milliliter by nebulization route every 4 hours as needed for wheezing 022 Active naloxone (Narcan) 4 mg/0.1 mL nasal spray spray 0.1 milliliter by intranasal route in 1 nostril for suspected opioid overdose. May repeat dose every 2-3 minutes as needed, alternating nostrils with each dose 021 Active oxyCODONE (Roxicodone) 15 MG immediate release tablet take 1 tablet by oral route 3 times daily as needed for pain Active pravastatin (Pravachol) 20 MG tablet TAKE 1 TABLET(20 MG) BY MOUTH IN THE MORNING 30 tablet 11 024 Active hydrocortisone 2.5 % cream APPLY TOPICALLY NEEDED FOR IRRITATION 30 g Active pantoprazole (ProtoNix) 40 MG EC tabletIndicatio ns:Heartburn TAKE 1 TABLET BY MOUTH EVERY DAY 90 tablet 2 Active mometasone (Elocon) 0.1 % ointment Apply topically Once per day. Apply topically Once per day. 45 g 2 025 2025 Active cetirizine (ZyrTEC) 10 MG tabletIndicatio ns:Benign essential hypertension TAKE 1 TABLET BY MOUTH EVERY DAY 90 tablet 1 Active latanoprost (Xalatan) 0.005 % ophthalmic solution Administer 1 drop into both eyes at bedtime. 7.5 mL 2 025 Active budesonide (Pulmicort) 0.5 MG/2ML nebulizer solutionIndicat ions:Mild asthma, unspecified whether complicated, unspecified whether persistent USE 2 ML VIA NEBULIZER EVERY DAY 180 mL 025 Active montelukast (Singulair) 10 MG tablet TAKE 1 TABLET(10 MG) BY MOUTH EVERY DAY AT BEDTIME 90 tablet 1 Active lactulose (Chronulac) 10 GM/15ML solution TAKE 15ML BY MOUTH EVERY DAY WITH BREAKFAST 237 mL 1 025 Active docusate sodium (Colace) 100 MG capsule TAKE 1 CAPSULE BY MOUTH TWICE DAILY 180 capsule 025 Active Blood Pressure kitIndications: Essential hypertension Use daily to check BP at home 1 kit Active mirtazapine (Remeron) 7.5 MG tablet Take 1 tablet (7.5 mg) by mouth at bedtime. 30 tablet 2 Active valsartan-hydro CHLOROthiazide (Diovan HCT) 80-12.5 MG tablet Take 1 tablet by mouth Once per day. 30 tablet 11 025 2025 Active albuterol 108 (90 Base) MCG/ACT inhaler INHALE 2 PUFFS BY MOUTH EVERY 4-6 HOURS NEEDED 8.5 g 1 Active fluticasone (Flonase) 50 MCG/ACT nasal spray SHAKE LIQUID AND USE 1 SPRAY IN EACH NOSTRIL EVERY DAY 16 g 09/30/2 025 Active gabapentin (Neurontin) 100 MG capsuleIndicati ons:Closed fracture of left orbital floor with routine healing, subsequent encounter,Close d fracture of neck of left femur with routine healing, subsequent encounter TAKE 2 CAPSULES BY MOUTH THREE TIMES DAILY 180 capsule 1 Active spironolactone (Aldactone) 25 MG tablet Take 0.5 tablets (12.5 mg) by mouth Once per day. 45 tablet 2 Active hydrALAZINE (Apresoline) 25 MG tablet Take 1 tablet (25 mg) by mouth 2 times daily. 180 tablet 3 025 2025 Active metoprolol succinate XL (Toprol-XL) 25 MG 24 hr tablet TAKE 1 TABLET BY MOUTH EVERY DAY 90 tablet 3 Active clonazePAM (KlonoPIN) 0.5 MG tablet Take 1 tablet (0.5 mg) by mouth at bedtime for 10 days. 10 tablet 023 2024 Discontinued(M ed list cleanup (will not trigger notification to Pharmacy)) Blood Pressure Monitor kitIndications: Essential hypertension Use to check blood pressure daily 1 kit 024 2024 Discontinued(M ed list cleanup (will not trigger notification to Pharmacy)) amLODIPine (Norvasc) 10 MG tabletIndicatio ns:Essential hypertension Take 1 tablet (10 mg) by mouth Once per day. 90 tablet 1 025 2024 Discontinued(S roland effects) albuterol 108 (90 Base) MCG/ACT inhaler INHALE 2 PUFFS BY MOUTH EVERY 4-6 HOURS NEEDED 8.5 g 1 025 2024 Discontinued(R eorder (will not trigger notification to Pharmacy)) gabapentin (Neurontin) 100 MG capsuleIndicati ons:Closed fracture of left orbital floor with routine healing, subsequent encounter,Close d fracture of neck of left femur with routine healing, subsequent encounter TAKE 2 CAPSULES BY MOUTH THREE TIMES DAILY 180 capsule 1 025 2024 Discontinued(R eorder (will not trigger notification to Pharmacy)) fluticasone (Flonase) 50 MCG/ACT nasal spray SHAKE LIQUID AND USE 1 SPRAY IN EACH NOSTRIL EVERY DAY 16 g 025 2024 Discontinued(R eorder (will not trigger notification to Pharmacy)) hydrALAZINE (Apresoline) 25 MG tablet Take 1 tablet by mouth 2 times daily. 2024 Discontinued(R eorder (will not trigger notification to Pharmacy)) metoprolol succinate XL (Toprol-XL) 25 MG 24 hr tablet Take 1 tablet by mouth Once per day. 025 2024 Discontinued(R eorder (will not trigger notification to Pharmacy)) valsartan (Diovan) 40 MG tablet Take 1 tablet (40 mg) by mouth Once per day. 30 tablet 11 2024 Discontinued(T herapy completed) amLODIPine (Norvasc) 5 MG tablet Take 1 tablet (5 mg) by mouth Once per day. 30 tablet 11 2024 Discontinued(S roland effects) metoprolol succinate XL (Toprol-XL) 25 MG 24 hr tablet TAKE 1 TABLET BY MOUTH EVERY DAY 30 tablet 1 2024 Discontinued(R eorder (will not trigger notification to Pharmacy)) sucralfate (Carafate) 1 g tablet Take 1 g by mouth 3 times daily. Before meals and at bedtime 2024 Active Problems Problem Noted Date Diagnosed Date Hospital discharge follow-up 07/14/2024 Closed fracture of neck of left femur with routi ne healing 07/14/2024 Closed fracture of left orbital floor with routi ne healing 07/14/2024 Heartburn 07/14/2024 Adjustment disorder with anxious mood 06/14/2023 Assessment & Plan (07/09/2023 1:05 PM EDT): Further services needed, but declined Behavioral Health Integration Plan Internal connected to Reji ([facility] Access Navigator) Patient Self Plan Patient to reach out to [facility] team as needed Housing or economic circumstance 06/14/2023 Essential tremor 01/04/2023 Assessment & Plan (01/04/2023 11:12 AM EDT): Patient has not done her blood work for TSH yet, I advise to do it as soon as possible For now trail of primidone 25mg at bed time to see if it helps then f/u with PCP Lumbar back pain 09/04/2022 Drug-induced constipation 03/04/2022 Stage 3a chronic kidney disease (CMS/HCC) 2018 Varicose veins of lower extremity 09/11/2017 Cirrhosis of liver (CMS/HCC) 04/30/2017 Migraine 02/04/2017 Seasonal allergic rhinitis 09/21/2016 Dyshidrotic eczema 03/14/2016 Essential hypertension 05/20/2015 Assessment & Plan (06/09/2023 5:42 PM EDT): Denies BP at home > 140/90 -to f w PCP ,possible in setting of pain and discomfort from current infection -advised pt to monitor BP at home at least 3 times a week and bring readings at next apt w PCP --has apt w PCP 08/09/2023 Assessment & Plan (03/07/2023 10:46 AM EST): Elevated today patient tells me she was in a hurry and took her medications just before coming here I advise low Na diet f/u with PCP and HTN program Chronic pain 05/20/2015 Mild asthma 05/20/2015 Degeneration of thoracolumbar intervertebral dis c 05/20/2015 Chronic hepatitis C (CMS/HCC) 05/20/2015 Overview (09/11/2022): Cured with Harvoni at [place] back in 2015 Immune to hep A and had hep B vaccine Assessment & Plan (09/12/2022 5:30 AM EDT): Cured with Harvoni at [place] back in 2016 Immune to hep A and had hep B vaccine. She is due to repeat US of the liver for HCC screening Cervical spondylosis 05/20/2015 Resolved Problems Problem Noted Date Diagnosed Date Resolved Date Viral upper respiratory tract infection 06/09/2023 11/26/2023 Assessment & Plan (06/09/2023 5:42 PM EDT): Pt w upper respiratory symptoms consistent with viral syndrome VS wnl and benign exam Here Flu and COVID 19 test are neg Strep test is neg today -chem 04/2023 CR 1.11 GFR 48 ,-LFTs 08/2022 wnl -sent viral panel to hospital to confirm for COVID, flu and for RSV test -hydration advised -supportive tx -alarm signs and symptoms discussed Scabies 03/07/2023 11/26/2023 Rib pain 09/04/2022 11/26/2023 Lung mass 06/15/2015 11/26/2023 Encounters Date Type Department Care Team Description 12/22/2024 1:15 PM EDT Office Visit [facility] MEDICINE [address] [place] [address] James Diaz MD Essential hypertension (Primary Dx); Ankle edema, bilateral; Hyperglycemia; Encounter for immunization 12/22/2024 Travel 12/21/[address] [address] James Diaz MD CHART PREP 12/15/2024 Refill [facility] [address] [place] [address] James Diaz MD 12/15/2024 Refill [facility] [address] [place] [address] James Diaz MD Closed fracture of left orbital floor with routine healing, subsequent encounter; Closed fracture of neck of left femur with routine healing, subsequent encounter 12/08/[address] [address] Vanessa Perez RN 12/07/2024 1:00 PM EDT Telemedicine [address] [address] Marlen Dixon, EDWIN Essential hypertension 12/07/2024 Travel 12/07/2024 Patient Outreach [address] [address] James Diaz MD Transition Of Care (Tcm) (HDF unscheduled LVM ) 11/30/2024 4:00 PM EDT Office Visit [facility] WALK[facility] [address] [place] [address] James Diaz MD Essential hypertension (Primary Dx); Bilateral leg edema 11/30/2024 Travel 11/27/2024 Telephone [facility] [address] [address] James Diaz MD FYI 11/18/2024 Telephone [facility] [address] [place] [address] James Diaz MD 11/18/2024 Telephone [facility] [address] [place] [address] James Diaz MD Nurse Triage 11/13/2024 Telephone [facility] [address] [place] [address] James Diaz MD Appointment Request 11/12/2024 10:00 AM EDT Office Visit [facility] [address] [place] [address] James Diaz MD Essential hypertension (Primary Dx); Insomnia, unspecified type; Decreased appetite 11/12/2024 Travel 11/11/2024 Telephone [facility] [address] [place] [address] James Diaz MD [facility] 11/09/2024 Refill [facility] [address] [facility] [place] [address] James Diaz MD 11/02/2024 Telephone [facility] [address] [facility] [place] [address] James Diaz MD Hospital Follow-up 10/29/2024 Refill [facility] [address] [facility] [place] [address] James Diaz MD 10/26/2024 Refill [facility] [address] [facility] [place] [address] James Diaz MD 10/26/2024 Patient Outreach [facility] [address] [facility] [place] [address] James Diaz MD Transition Of Care (Tcm) (HDF unscheduled LVM ) 10/26/2024 Telephone [facility] [address] [facility] [place] [address] James Diaz MD 10/26/2024 Telephone [facility] [address] [place] [address] James Diaz MD Hospital Follow-up 10/12/2024 Telephone [facility] [address] [place] [address] James Diaz MD Med Refill 10/12/2024 Telephone [facility] [address] [place] [address] James Diaz MD fyi 10/07/2024 Telephone [facility] [address] [place] [address] James Diaz MD fyi 10/06/2024 Telephone [facility] [address] [place] [address] Marilee Stewart MD 10/06/2024 Telephone [facility] [address] [place] [address] James Diaz MD Med Refill 10/01/[address] [address] James Diza MD FYI 09/30/2024 Patient Outreach [facility] [address] [place] [address] James Diaz MD Pre-visit Planning (HDF scheduled. ) 09/30/[address] [address] Vanessa Perez, EDWIN 09/30/[address] [address] James Diaz MD [facility] Follow-up 09/30/2024 Patient Outreach [address] [address] James Diaz MD Transition Of Care (Tcm) ([facility] ) 09/30/[address] [address] James Diaz MD Med Refill from Last 3 Months Immunizations Immunization Administration Dates Next Due Hep B, adult 09/29/2015, 6,03/25/2015,05/18,12/09/2007,11/06/2007 Influenza High-dose Quadriva lent Preservative Free 12/18/2021,11/05/2020,11/11/2019 Influenza injectable quadriv alent IIV4 with preservative 11/25/2017,12/19/2016 Influenza injectable quadriv alent preservative free 12/12/2022,01/29/2019 Influenza, High Dose Seasona l, Preservative Free 12/22/2024,11/26/2023,10/23/2017,12/11,11/24/2014 Influenza, IIV3, injectable 11/21/2013,0 11/11/2012,01/04/2011,01/20,12/09/2007 Influenza, Unspecified 12/18/2021,2020,11/11/2019,11/21,11/11/2012,01/04/2011,01/20/2010 ,12/09/2007 Influenza, injectable, quadr ivalent, preservative free, pediatric 01/20/2010 Influenza, trivalent, adjuvanted 12/23/2018,10/17 Novel [id number], preservative-free 04/21/2009 Pfizer Covid-19 Vaccine 12+ 07/25/2021,1 04/06/2020,07/25/2020,07/04 Pfizer Covid-19 Vaccine 12+ Bivalent 03/21/2022 Pfizer Covid-19 Vaccine 12+ tika-sucrose (Chatterjee Cap) 07/25/2021 Pneumococcal Conjugate PCV 13 07/20/2016, 015 Pneumococcal Polysaccharide PPSV23 11/24/2014, SARS-CoV-2, Unspecified 07/25/2021 TD (adult), 2 Lf tetanus tox oid, preservative free, adsorbed 01/29/2018 Tdap 06/03/2024,01/16/2008 Zoster, Recombinant 12/18/2021,11/10/2017 Zoster, live 05/10/2014 Social History Tobacco Use Types Packs/Day Years Used Date Smoking Tobacco: Never Smokeless Tobacco: Never Tobacco Cessation:Counseling Given: Not Answered Alcohol Use Standard Drinks/Week Comments Never 0 (1 standard drink = 0.6 oz pur e alcohol) Depression Answer Date Recorded Patient Health Questionnaire-9 Score 6 12/22/2024 Patient Health Questionnaire-9 Score 6 12/22/2024 Last PHQ-9: Questionnaire Data Not on file 1 Housing Stability Answer Date Recorded What is your housing situation today? I have housing today, but I am worried about losing housing in the future 12/22/[address] you li ve. Do you have problems with any of the following? None of the above 12/22/2024 Food Insecurity Answer Date Recorded Within the past 12 months, y ou worried that your food would run out before you got money to buy more: Sometimes True 2024 Within the past 12 months,th e food you bought just didn't last and you didn't have enough money to get more: Sometimes True 12/22/2024 Transportation Answer Date Recorded In the past 12 months, has l ack of transportation kept you from medical appts, meetings, work or from getting things needed for daily living? No 12/22/2024 Utilities Answer Date Recorded In the past 12 months, has t he electric, gas, oil or water company threatened to shut off services in your home? No 03/05/2024 Depression Answer Date Recorded Patient Health Questionnaire-2 Score 0 12/22/2024 Internet Access Answer Date Recorded Internet Access Q1 No 12/22/2024 Internet Access Q2 I cannot afford it 12/22/2024 Comments Unknown Sex and Gender Information Value Date Recorded Sex Assigned at Female 01/15/2022 10:17 AM EDT Legal Sex Female 10:17 AM EDT Gender Identity Female 01/15/2022 10:17 AM EDT Sexual Orientation Straight 01/15/2022 10 :17 AM EDT Last Filed Vital Signs Vital Sign Reading Time Taken Comments Blood Pressure 178/74 12/22/2024 1:18 PM EDT Pulse 75 12/22/2024 1:18 PM EDT Temperature 36.7 C (98 F) 12/22/2024 1:18 PM EDT Respiratory Rate 12 12/22/2024 1:18 PM EDT Oxygen Saturation 99% 12/22/2024 1:18 PM EDT Inhaled Oxygen Concentration - - Weight 66.6 kg (146 lb 12.8 oz) 12/22/2024 1:18 PM EDT Height 160 cm (5' 3 ) 12/22/2024 1:18 PM EDT Body Mass Index 26 12/22/2024 1:18 PM EDT Plan of Treatment Upcoming Encounters Date Type Department Care Team (Late st Contact Info) Description 12/31/2024 1:30 PM EDT Telemedicine [address] [address] 01/27/2025 2:30 PM EST Medication Management [address] [address] Meri Valdez, PharmD [address] [place] [phone] 02/09/2025 1:00 PM EST Office Visit [address] [address] Name, MD James Kris [place], [place] [phone] Health Maintenance Due Date Last Done Comments CT Colonography 1950 Colonoscopy 1950 Colorectal Cancer Screening 1950 FIT DNA/Cologuard 1949 FIT 1950 FOBT 1950 Sigmoidoscopy 1950 Hepatitis A Vaccines (1 of 2 - Risk 2-dose series) 1968 RSV Patients and Patients Aged 60 years or older (1 - 1-dose 75+ series) 2024 COVID-19 Vaccine ( season) 2024 03/21/2022, 07/25/2021, 07/25/2021, Additional history exists Alcohol/Substance Use Screening 03/05/2025 03/05/2024 Depression Screening 12/22/2025 12/22/2024, 12/23/19 25 Diabetes: Hemoglobin A1C 12/22/2025 025, 03/21/2022, 07/18/2021 SDOH Screening 12/22/2025 12/22/2024 Tobacco Screening 12/22/2025 12/22/2024 Lipid Panel 09/12/2027 09/11/2022, 03/21/2022 DTaP/Tdap/Td Vaccines (4 - Td or Tdap) 06/03/2034 06/03/2024, 01/29/2018, 01/16/2008 Hepatitis B Vaccines Completed 09/29/2015, 04/28/2015, 03/25/2015, Additional history exists Pneumococcal Vaccine: 50+ Years Completed 07/20/2016, 11/24/2014, 11/24/2014, Additional history exists Zoster Vaccines Completed 12/18/2021, 10/17, 05/10/2014 Influenza Vaccine Completed 12/22/2024, , 12/12/2022, Additional history exists HIB Vaccines Aged Out No longer eligi ble based on patient's age to complete this topic HPV Vaccines Aged Out No longer eligi ble based on patient's age to complete this topic IPV Vaccines Aged Out No longer eligi ble based on patient's age to complete this topic Meningococcal B Vaccine Aged Out No l onger eligible based on patient's age to complete this topic Meningococcal Vaccine Aged Out No burt pavan eligible based on patient's age to complete this topic RSV under 20 months Aged Out No longe r eligible based on patient's age to complete this topic Rotavirus Vaccines Aged Out No longer eligible based on patient's age to complete this topic Goals Goal Patient Goal Type Associated Problems Recent Progress Patient-Stated? Author Blood Pressure < 140/90 Blood Pressure 178/74( 025 1:18 PM EDT) No Meri Valdez, Farhan Record your blood pressure daily Blood Pressure No Meri Valdez, Farhan Procedures Procedure Name Priority Date/Time Associated Diagnosis Comments POCT GLYCATED HEMOGLOBIN, TOTAL Routine 12/22/2024 1:49 PM EDT Hyperglycemia LIPID PANEL, STANDARD Routine 09/11/2022 2:15 PM EDT Essential hypertension Myalgia due to statin from Last 3 Months or Most Recently Relevant to Health Maintenance Results * (ABNORMAL) POCT Hgb A1c (12/22/2024 1:49 PM EDT) Hemoglobin A1C 5.8(A) 4.0 - 5.7 % QC Media Lot # [id number] Lot# Expiration Date Blood 12/22/2024 1:49 PM EDT James iDaz MD POINT OF CARE TEST ENTER/EDIT OR DERABLES Final Result * (ABNORMAL) Lipid Panel, Standard (09/11/2022 2:15 PM EDT) Cholesterol, Total 226(H) <200 mg/dL [facility] [place] [facility] HDL Cholesterol 36(L) > OR = 50 mg/dL [facility] [place] [facility] Triglycerides 329(H) <150 mg/dL [facility] [place] [facility] Comment: If a non-fasting specimen was collected, consider repeat triglyceride testing on a fasting specimen if clinically indicated. Dragan et al. J. of Clin. Lipidol. 2015;9:129-169. LDL Cholesterol 139(H) mg/dL (calc) [facility] [place] [facility] Comment: Reference range: <100 Desirable range <100 mg/dL for primary prevention; <70 mg/dL for patients with CHD or diabetic patients with > or = 2 CHD risk factors. LDL-C is now calculated using the Mark-Mike calculation, which is a validated novel method providing better accuracy than the Friedewald equation in the estimation of LDL-C. Mark SS et al. JEANNETTE. 2013;310(19): 3403-1082 (http://education.KnowNow/faq/VOG872) Chol/HDLC Ratio 6.3(H) <5.0 (calc) [facility] Non-HDL Cholesterol 190(H) <130 mg/dL (calc) [facility] Comment: For patients with diabetes plus 1 major ASCVD risk factor, treating to a non-HDL-C goal of <100 mg/dL (LDL-C of <70 mg/dL) is considered a therapeutic option. Blood Venous blood specimen / Unknown 09/11/2022 2:15 PM EDT 09/11/2022 2:15 PM EDT us James Diaz MD LAB BLOOD ORDERABLES Final Resul t [facility] [address], [place] [address] [facility] [address] [place] [phone] from Last 3 Months or Most Recently Relevant to Health Maintenance Insurance [facility] [address] STANDARD [facility] DUAL COMPLETE [address] [place] [address] [facility] [address] STANDARD Care Teams Parts Room Clerk Relationship Specialty Start Date End Date Name, MD James [address] [place] [phone] PCP - General Family Medicine 05/20/15 [facility] 07/07/24
--- OUTSIDE RECORDS SUMMARY | 2024-12-28 12:19 | XMS_ITS | Encounter Summary ---
Author Organization [employer] Address [address] [place] [address] [address] [place] [address] Care Team Providers Care Microfilm Operator Name Role Phone Name, James REED Primary Care Provider [phone] Meri Valdez PharmD Unavailable [phone] Encounter Details Date Type Department Care Team (Late Contact Info) Description 04/10/2022 Telephone [facility] MEDICINE [address] [place] [address] [phone] Name, MD James [address] [place] [phone] Social History Tobacco Use Types Packs/Day Years [...] Info) Description 12/31/2024 1:30 PM EDT Telemedicine [facility] [address] [place] [address] [phone] 01/27/2025 2:30 PM EST Medication Management [facility] [address] [place] [address] [phone] Puia Meri, PharmD [address] [place] [address] 02/09/2025 1:00 PM EST Office Visit [facility] [address] [place] [address] Name, [place] [address] documented as of this encounter Visit Diagnoses Not on filedocumented in this encounter Care Teams Microfilm Operator Relationship Specialty Start Date End Date Name, [place] [address] PCP - General Family Medicine 05/20/15 [place] [address] Pharmacist Internal Medicine 09/26/21 12/19/23 Doris AYERSA 07/07/24 documented as of this encounter
--- OUTSIDE RECORDS SUMMARY | 2024-12-28 12:19 | XMS_ITS | Encounter Summary ---
Author Organization [employer] Address [address] [place] [address] 7t [place] [address] Care Team Providers Care Director Of Recruitment And Admissions Name Role Phone Name, James REED Primary Care Provider [phone] PuMeri june PharmD Unavailable Reason for Visit * Reason Comments Med Refill Encounter Details Date Type Department Care Team (Late st Contact Info) Description 07/06/2022 Refill [facility]INE [address] [place] [address] Puia, Meri, PharmD [address] [place] [address] Benign essential hypertension Social History Tobacco Use Types Packs/Day [...] Info) Description 12/31/2024 1:30 PM EDT Telemedicine [facility] MED[facility]INE [address] [place], [place] [phone] 01/27/2025 2:30 PM EST Medication Management [facility] [address] [place] [address] Puia, Meri, PharmD [address] [place] [address] 02/09/2025 1:00 PM EST Office Visit [facility] [address] [facility] [place] [address] Name, MD James [address] [place] [address] documented as of this encounter Goals Goal Patient Goal Type Associated Problems Recent Progress Patient-Stated? Author Blood Pressure < 140/90 Blood Pressure 178/74( 025 1:18 PM EDT) No PuiaTankMeri, PharmD Record your blood pressure daily Blood Pressure No Meri Valdez, PharmD documented as of this encounter Visit Diagnoses Diagnosis Benign essential hypertension Essential hypertension, benign documented in this encounter Care Teams Director Of Recruitment And Admissions Relationship Specialty Start Date End Date Name[place] [address] PCP - General Family Medicine 05/20/15 Meri Valdez, [place] [address] Pharmacist Internal Medicine 09/26/21 12/19/23 Doris VNA 07/07/24 documented as of this encounter
--- OUTSIDE RECORDS SUMMARY | 2024-12-28 12:19 | XMS_ITS | Encounter Summary ---
Author Organization [employer] Address [address] [place] [address] 7t [place] [address] Care Team Providers Care Head Concierge Name Role Phone Name, James REED Primary Care Provider [phone] Reason for Visit * Reason Onset Date Comments Appointment Request 11/13/2024 Encounter Details Date Type Department Care Team ([facility] st Contact Info) Description 11/13/2024 Telephone [facility] MEDICINE 230 [place] [address] Name, MD James [address] [place], [place] [phone] Appointment Request Social History Tobacco Use Types Packs/Day Years [...] encounter Miscellaneous Notes * Telephone Encounter - Liang Becerra - 11/13/2024 10:15 AM EDT Tc from pt requesting to reschedule CDTM apt on 11/18 Contact pt at [phone] (chadian) documented in this encounter Plan of Treatment Upcoming Encounters Date Type Department Care Team (Late st Contact Info) Description 12/31/2024 1:30 PM EDT Telemedicine [address] [address] 01/27/2025 2:30 PM EST Medication Management [address] [address] Meri Valdez, PharmD [address] [place] [address] 02/09/2025 1:00 PM EST Office Visit [address] [phone] Name, MD James [address] [place] [address] documented as of this encounter Goals Goal [...] documented as of this encounter Care Teams Head Concierge Relationship Specialty Start Date End Date Name, MD James [address] [place] [address] PCP - General Family Medicine 05/20/15 Doris MOSER 07/07/24 documented as of this encounter
--- OUTSIDE RECORDS SUMMARY | 2024-12-28 12:19 | XMS_ITS | Encounter Summary ---
Author Organization [employer] Address [address] [facility] 7t [place] [address] Care Team Providers Care Upper And Bottom Lacer Hand Name Role Phone Name, James REED Primary Care Provider [phone] Reason for Visit * Reason Comments Med Refill Encounter Details Date Type Department Care Team ([facility] st Contact Info) Description 12/15/2024 Refill [facility] MEDICINE 230 [place], [place] [phone] Name, MD James 230 [place], [place] [phone] Social History Tobacco Use Types Packs/Day Years [...] Info) Description 12/31/2024 1:30 PM EDT Telemedicine [address] [address] 01/27/2025 2:30 PM EST Medication Management [address] [address] Puia, Meri, PharmD [address] [place] [address] 02/09/2025 1:00 PM EST Office Visit [address] [address] James Diaz MD [address] [place] [address] documented as of this encounter Goals Goal [...] documented as of this encounter Care Teams Upper And Bottom Lacer Hand Relationship Specialty Start Date End Date James Diaz MD 230 [place] [address] PCP - General Family Medicine 05/20/15 Doris MOSER 07/07/24 documented as of this encounter
--- OUTSIDE RECORDS SUMMARY | 2024-12-28 12:19 | XMS_ITS | Clinical Summary ---
Author Organization [facility], Address [address] [place] [address] [place] [address] Phone Care Team Providers Care Writing Tutor Name Role Phone Uriah Martinez MD Primary Care Provider [phone] Allergies Active Allergy Reactions Criticality Noted Date Comments Lisinopril Other (see comments) 03/24/2019 Polyethylene Glycol Other (see comments) 2019 Sulfa Antibiotics Other (see comments) 03/24/19 20 Medications atorvastatin (LIPITOR) 20 MG tablet Take 20 mg by mouth 1 (one) time each day Active predniSONE (DELTASONE) 20 MG tablet Take 20 mg by mouth 1 (one) time each day Active amLODIPine-vals donato (EXFORGE) 10-320 MG per tablet Take 1 tablet by mouth 1 (one) time each day Active metoprolol tartrate 25 MG tablet Take 50 mg by mouth in the morning and 50 mg in the evening. Active chlorthalidone (HYGROTON) 50 MG tablet Take 50 mg by mouth 1 (one) time each day Active cetirizine (ZyrTEC) 10 MG tablet Take 10 mg by mouth 1 (one) time each day 03/19/2023 Active cyclobenzaprine (FLEXERIL) 10 MG tablet Take 1 tablet by mouth 01/16/2023 Active montelukast (SINGULAIR) 10 MG tablet 02/15/2023 Active pantoprazole (PROTONIX) 40 MG EC tablet Take 40 mg by mouth 1 (one) time each day 03/19/2023 Active pravastatin (PRAVACHOL) 20 MG tablet 03/17/2023 Active Active Problems Problem Noted Date Diagnosed Date Stage 3a chronic kidney disease 07/28/2019 Essential hypertension Resolved Problems Problem Noted Date Diagnosed Date Resolved Date Urinary tract infection 12/16 Serum creatinine above reference range 12/27/2021 Blood in urine 12/27/2021 Immunizations Immunization Administration Dates Next Due H1N1 Inj Preservative Free 04/21/2009 Hepatitis B 09/29/2015, 6,03/25/2015,05/18,12/09/2007,11/06/2007 Influenza Split High Dose Pr eservative Free IM 10/23/2017,12/12/2015,11/24/2014 Influenza, Quadrivalent, Pf, Pediatrics 01/20/2010 Influenza, Quadrivalent, Pre servative Free 01/29/2019 Influenza, Quadrivalent, Wit h Preservative 11/25/2017,12/19/2016 Influenza, Trivalent, Adjuvanted 12/23/2018,10/17 Influenza, Unspecified 12/18/2021,2020,11/11/2019,11/21,11/11/2012,01/04/2011,01/20/2010 ,12/09/2007 Pfizer SARS-COV-2 07/25/2021,,07/25/2020,07/04 Pneumococcal Conjugate 13-Valent 07/20/2016,11/2014 Pneumococcal Polysaccharide 11/24/2014, 8 SARS-CoV-2, Unspecified 03/21/2022,07/25/2021 Shingrix 12/18/2021,11/10/2017 Td 01/29/2018 Tdap 01/16/2008 Zoster 05/10/2014 Family History Medical History Relation Comments Coronary artery disease Sibling Diabetes Sibling Hypertension Sibling Kidney disease Sibling sister going on dialysis Relation Status Comments Sibling Social History Tobacco Use Types Packs/Day Years Used Date Smoking Tobacco: Never Tobacco Cessation:Counseling Given: Not Answered Comments Unknown Sex and Gender Information Value Date Recorded Sex Assigned at Not on file Legal Sex Female 4:32 PM EST Gender Identity Not on file Sexual Orientation Not on file Last Filed Vital Signs Vital Sign Reading Time Taken Comments Blood Pressure 159/57 04/26/2022 1:51 PM EST Pulse 64 04/26/2022 1:51 PM EST Temperature - - Respiratory Rate - - Oxygen Saturation - - Inhaled Oxygen Concentration - - Weight 69.7 kg (153 lb 9.6 oz) 03/25/2019 1:29 P M EST Height 160 cm (5' 3 ) 03/25/2019 1:29 PM EST Body Mass Index 27.21 03/25/2019 1:29 PM EST Plan of Treatment Health Maintenance Due Date Last Done Comments Breast Cancer Screening 1950 Colorectal Cancer Screening: Annual FOBT 1998 Colorectal Cancer Screening: Colonoscopy 1998 Colorectal Cancer Screening: Sigmoidoscopy 1998 Hepatitis B Vaccine (1 of 3 - Risk 3-dose series) 2009 09/29/2015, 04/28/2015, 03/25/2015, Additional history exists Influenza Vaccine (#1) 2024 , 12/18/2021, 11/05/2020, Additional history exists Pneumococcal Vaccine: 50+ Years Completed 07/20/2016, 11/24/2014, 11/24/2014, Additional history exists Pneumococcal Vaccine: Peds ( 0 to 5 Years) and At-Risk Patients (6 to 49 Years) Discontinued 07/20/2016, 11/24/2014, 11/24/2014, Additional history exists Insurance [address] [place] [address] Medicaid [place] UHC Medicare Care Teams Writing Tutor Relationship Specialty Start Date End Date Uriah Martinez MD [address] [place] [address] [place] [phone] PCP - General Nephrology 07/20/22
--- OUTSIDE RECORDS SUMMARY | 2024-12-28 12:19 | XMS_ITS | Encounter Summary ---
Author Organization [facility] Address [address] [place] [address] Care Team Providers Care Patient Transportation Driver Name Role Phone Name, James REED Primary Care Provider [phone] Encounter Details Date Type Department Care Team (Late st Contact Info) Description 06/10/2024 Lab Requisition [facility] - Main Lab [address] [facility] [place] [address] Neelima Rosario MD [address] [place] [address] Fracture of unspecified part of neck of left femur, subsequent encounter for closed fracture with routine healing; Unspecified viral hepatitis C without hepatic coma Social History Tobacco Use Types Packs/Day Years Used Date Smoking Tobacco: Never Smokeless Tobacco: Never Alcohol Use Standard Drinks/Week Comments No 0 (1 standard drink = 0.6 oz pur e alcohol) Comments Unknown Sex and Gender Information Value Date Recorded Sex Assigned at Not on file Legal Sex Female 12:37 PM EST Gender Identity Not on file Sexual Orientation Not on file documented as of this encounter Plan of Treatment Not on file documented as of this encounter Procedures Procedure Name Priority Date/Time Associated Diagnosis Comments COMPLETE BLOOD COUNT Routine 06/10/2024 4:54 AM EDT Fracture of unspecified part of neck of left femur, subsequent encounter for closed fracture with routine healing Unspecified viral hepatitis C without hepatic coma BASIC METABOLIC PANEL Routine 06/10/2024 4:54 AM EDT Fracture of unspecified part of neck of left femur, subsequent encounter for closed fracture with routine healing Unspecified viral hepatitis C without hepatic coma documented in this encounter Results * (ABNORMAL) Basic metabolic panel (06/10/2024 4:54 AM EDT) Sodium 135 133 - 145 mmol/L LAB CHEMISTRY METHOD 06/10/2024 9:22 AM [facility] Potassium 4.1 3.5 - 5.5 mmol/L LAB CHEMISTRY METHOD 06/10/2024 9:22 AM [facility] Chloride 101 96 - 110 mmol/L LAB CHEMISTRY METHOD 06/10/2024 9:22 AM [facility] CO2 27 21 - 32 mmol/L LAB CHEMISTRY METHOD 06/10/2024 9:22 AM [facility] Anion Gap 7 3 - 11 LAB CHEMISTRY METHOD 06/10/2024 9:22 AM [facility] Glucose 115(H) 70 - 100 mg/dL LAB CHEMISTRY METHOD 06/10/2024 9:22 AM [facility] BUN 18 5 - 25 mg/dL LAB CHEMISTRY METHOD 06/10/2024 9:22 AM [facility] Creatinine 0.70 0.50 - 1.10 mg/dL LAB CHEMISTRY METHOD 06/10/2024 9:22 AM [facility] eGFR 91 >=60 mL/min/1. 73m2 LAB CHEMISTRY METHOD 06/10/2024 9:22 AM [facility] Comment:Calculation based on the Chronic Kidney Disease Epidemiology Collaboration (CKD-EPI) equation refit without adjustment for race. BUN/Creatinine Ratio 25.7 LAB CHEMISTRY METHOD 06/10/2024 9:22 AM [facility] Calcium 9.0 8.5 - 10.5 mg/dL LAB CHEMISTRY METHOD 06/10/2024 9:22 AM [facility] Blood Venous blood specimen / Unknown Venipuncture / Unknown 06/10/2024 4:54 AM EDT 06/10/2024 8:27 AM EDT us Neelima Rosario MD LAB BLOOD ORDERABLES Final Resu lt [facility] [address] [place] [address], * (ABNORMAL) Complete blood count (06/10/2024 4:54 AM EDT) WBC 4.0(L) 4.8 - 10.8 K/mcL LAB HEMETOLOGY METHOD 06/10/2024 8:57 AM EDT [facility] RBC 3.70(L) 3.80 - 4.80 M/mcL LAB HEMETOLOGY METHOD 06/10/2024 8:57 AM EDT [facility] Hemoglobin 11.0(L) 11.5 - 16.0 g/dL LAB HEMETOLOGY METHOD 06/10/2024 8:57 AM EDT [facility] Hematocrit 33.4(L) 35.0 - 47.0 % LAB HEMETOLOGY METHOD 06/10/2024 8:57 AM EDT [facility] MCV 90.0 79.0 - 98.0 FL LAB HEMETOLOGY METHOD 06/10/2024 8:57 AM EDT [facility] MCH 29.6 27.0 - 32.0 pcg LAB HEMETOLOGY METHOD 06/10/2024 8:57 AM EDT [facility] MCHC 32.9 32.0 - 37.0 g/dL LAB HEMETOLOGY METHOD 06/10/2024 8:57 AM EDT [facility] RDW 13.6 11.0 - 15.0 % LAB HEMETOLOGY METHOD 06/10/2024 8:57 AM EDT [facility] Platelets 219 130 - 400 K/mcL LAB HEMETOLOGY METHOD 06/10/2024 8:57 AM EDT [facility] MPV 10.5 7.0 - 11.0 FL LAB HEMETOLOGY METHOD 06/10/2024 8:57 AM EDT [facility] NRBC 0.0 <1.0 % LAB HEMETOLOGY METHOD 06/10/2024 8:57 AM EDT [facility] NRBC Absolute 0.00 <0.10 K/mcL LAB HEMETOLOGY METHOD 06/10/2024 8:57 AM EDT [facility] Blood Venous blood specimen / Unknown Venipuncture / Unknown 06/10/2024 4:54 AM EDT 06/10/2024 8:27 AM EDT us Neelima Rosario MD LAB BLOOD ORDERABLES Final Resu lt [facility] [address] [place] [address], documented in this encounter Visit Diagnoses Diagnosis Fracture of unspecified part of neck of left femur, subsequent encounter for closed fracture with routine healing Unspecified viral hepatitis C without hepatic coma documented in this encounter Care Teams Patient Transportation Driver Relationship Specialty Start Date End Date Name, MD James [address] [place], [place] PCP - General Internal Medicine 12/08/15 documented as of this encounter
--- OUTSIDE RECORDS SUMMARY | 2024-12-28 12:19 | XMS_ITS | Encounter Summary ---
Author Organization [employer] Address [address] [place] [address] 7t [place] [address] Care Team Providers Care Net Application Architect Name Role Phone Name, James REED Primary Care Provider [phone] Reason for Visit * Reason Onset Date Comments FYI 10/01/2024 Encounter Details Date Type Department Care Team ([facility] st Contact Info) Description 10/01/2024 Telephone [facility] MEDICINE 230 [place] [address] Name, MD James [address] [place], [place] [phone] FYI Social History Tobacco Use Types Packs/Day Years [...] encounter Miscellaneous Notes * Telephone Encounter - Mehdi Mcfadden - 10/01/2024 2:25 PM EDT Tc from [facility] calling to inform pcp that they will be starting home therapy once a week for 4 weeks and from there they will transfer pt to outpatient therapy. if any questions you can contact pt at [phone]. documented in this encounter Plan of Treatment Upcoming Encounters Date Type Department Care Team (Late st Contact Info) Description 12/31/2024 1:30 PM EDT Telemedicine [address] [address] 01/27/2025 2:30 PM EST Medication Management [address] [address] Meri Valdez, PharmD [address] [place] [address] 02/09/2025 1:00 PM EST Office Visit [address] [address] Name, MD James [address] [place] [address] documented as of this encounter Goals Goal [...] documented as of this encounter Care Teams Net Application Architect Relationship Specialty Start Date End Date Name, MD James [address] [place] [address] PCP - General Family Medicine 05/20/15 Doris MOSER 07/07/24 documented as of this encounter
--- OUTSIDE RECORDS SUMMARY | 2024-12-28 12:19 | XMS_ITS | Encounter Summary ---
Author Organization [employer] Address [address] [facility] 7t [place] [address] Care Team Providers Care Impregnating Tank Operator Name Role Phone Name, James REED Primary Care Provider [phone] Reason for Visit * Reason Onset Date Comments Hospital Follow-up 09/30/2024 Encounter Details Date Type Department Care Team ([facility] st Contact Info) Description 09/30/2024 Telephone [facility] MEDICINE 230 [place] [address] Name, MD James 230 [place], [place] [phone] Hospital Follow-up Social History Tobacco Use Types [...] * Telephone Encounter - Liang Becerra - 09/30/2024 3:19 PM EDT Tc from pt requesting a call back. Contact pt at [phone] (mexican) * Telephone Encounter - Mehdi Mcfadden - 09/30/2024 9:34 AM EDT Tc from pt returning call regarding HDF. documented in this encounter Plan of Treatment Upcoming Encounters Date Type Department Care Team ([facility] st Contact Info) Description 12/31/2024 1:30 PM EDT Telemedicine [facility] MEDICINE [address] [place] [address] 01/27/2025 2:30 PM EST Medication Management [address] [address] Meri Valdez, JohnD [address] [place] [address] 02/09/2025 1:00 PM EST Office Visit [address] [address] NameJames MD 230 [place] [address] documented as of this encounter Goals Goal [...] documented as of this encounter Care Teams Impregnating Tank Operator Relationship Specialty Start Date End Date Name, MD James [address] [place] [address] PCP - General Family Medicine 05/20/15 [place] Rebekah 07/07/24 documented as of this encounter
--- OUTSIDE RECORDS SUMMARY | 2024-12-28 12:19 | XMS_ITS | Encounter Summary ---
Author Organization [employer] Address [address] [facility] 7t [place] [address] Care Team Providers Care Buncher Operator Name Role Phone Name, James REED Primary Care Provider [phone] Meri Valdez PharmD Unavailable [phone] Encounter Details Date Type Department Care Team (Late st Contact Info) Description 02/01/2023 Abstract [facility] MEDICINE 230 [place], [place] [phone] Justa Santos Social History Tobacco Use Types Packs/Day Years [...] Info) Description 12/31/2024 1:30 PM EDT Telemedicine [address] [address] 01/27/2025 2:30 PM EST Medication Management [address] [address] Puia, Meri, PharmD [address] [place] [address] 02/09/2025 1:00 PM EST Office Visit [address] [address] Name, MD James [address] [place] [address] documented as of this encounter Goals Goal [...] documented as of this encounter Care Teams Buncher Operator Relationship Specialty Start Date End Date NameJames MD [address] [place] [phone] PCP - General Family Medicine 05/20/15 Puia, Meri, PharmD [address] [place] [phone] Pharmacist Internal Medicine 09/26/21 12/19/23 Doris MOSER 07/07/24 documented as of this encounter
--- OUTSIDE RECORDS SUMMARY | 2024-12-28 12:19 | XMS_ITS | Encounter Summary ---
Author Organization [employer] Address [address] [place] [address] 7t [place] [address] Care Team Providers Care Housekeeper Child Care Name Role Phone Name, James REED Primary Care Provider [phone] Meri Valdez PharmD Unavailable [phone] Encounter Details Date Type Department Care Team (Late Contact Info) Description 03/21/2022 Abstract [facility] MEDICINE [address] [place] [phone] Name, MD James [address] [place] [address] Social History Tobacco Use Types Packs/Day Years [...] 12/31/2024 1:30 PM EDT Telemedicine [facility] MEDICINE [address] [place] [phone] 01/27/2025 2:30 PM EST Medication Management [facility] [address] [place] [phone] Puia Meri, PharmD 230 [place] [address] 02/09/2025 1:00 PM EST Office Visit [facility] MEDICINE [address] [place] [address] Name, [place] [address] documented as of this encounter Visit Diagnoses Not on filedocumented in this encounter Care Teams Housekeeper Child Care Relationship Specialty Start Date End Date Name, [place] [address] PCP - General Family Medicine 05/20/15 [place] [address] Pharmacist Internal Medicine 09/26/21 12/19/23 Doris AYERSA 07/07/24 documented as of this encounter
--- OUTSIDE RECORDS SUMMARY | 2024-12-28 12:19 | XMS_ITS | Encounter Summary ---
Author Organization [facility], Address [address] [place] [address] Phone Care Team Providers Care Tank House Supervisor Name Role Phone Uriah Martinez MD Primary Care Provider [phone] Encounter Details Date Type Department Care Team (Late st Contact Info) Description 10/19/2021 Documentation Only [facility], [address] [place] [address] Name, MD James [address] [place] [address] Social History Tobacco Use Types Packs/Day Years [...] on filedocumented in this encounter Care Teams Tank House Supervisor Relationship Specialty Start Date End Date Uriah Martinez MD [address] [place] [address] [place] [phone] PCP - General Nephrology 07/20/22 documented as of this encounter
--- OUTSIDE RECORDS SUMMARY | 2024-12-28 12:19 | XMS_ITS | Encounter Summary ---
Author Organization [employer] Address [address] [facility] 7t [place] [address] Care Team Providers Care It Corporate Recruiter Name Role Phone Name, James REED Primary Care Provider [phone] Meri Valdez PharmD Unavailable [phone] Reason for Visit * Reason Comments Med Refill Encounter Details Date Type Department Care Team ([facility] st Contact Info) Description 03/17/2023 Refill [facility] MEDICINE 230 [place], [place] [phone] Name, MD James [address] [place] [address] Benign essential hypertension; Heartburn Social History Tobacco Use Types Packs/Day Years [...] Info) Description 12/31/2024 1:30 PM EDT Telemedicine [address] [address] 01/27/2025 2:30 PM EST Medication Management [address] [address] Puia, Meri, PharmD [address] [place] [address] 02/09/2025 1:00 PM EST Office Visit [address] [address] NameJames MD [address] [place] [address] documented as of this encounter Goals Goal Patient Goal Type Associated Problems Recent Progress Patient-Stated? Author Blood Pressure < 140/90 Blood Pressure 178/74( 025 1:18 PM EDT) No Puia, Meri, PharmD Record your blood pressure daily Blood Pressure No Puia, Meri, PharmD documented as of this encounter Visit Diagnoses Diagnosis Benign essential hypertension Essential hypertension, benign Heartburn documented in this encounter Additional Health Concerns Assessment Noted Time PHQ-9 Depression Total Score: 0 09/12/19 23 1:41 PM EDT documented as of this encounter Care Teams It Corporate Recruiter Relationship Specialty Start Date End Date NameJames MD [address] [place] [address] PCP - General Family Medicine 05/20/15 Meri Valdez, JohnD [address] [place] [address] Pharmacist Internal Medicine 09/26/21 12/19/23 Doris MOSER 07/07/24 documented as of this encounter
--- OUTSIDE RECORDS SUMMARY | 2024-12-28 12:19 | XMS_ITS | Clinical Summary ---
Author Organization [facility] [address] [place] [address] [place] [phone] Phone Care Team Providers Care Day Haul Youth Supervisor Name Role Phone Name, James REED Primary Care Provider [phone] Surgical History Surgery Date Site/Laterality Comments ESOPHAGOGASTRODUODENOSCOPY 01/03/06 PROCEDURE: NJ EGD TRANSORAL BIOPSY SINGLE/MULTIPLE; COMMENT: Erosive gastritis SECTION PROCEDURE: HISTORICAL TUBAL LIGATION PROCEDURE: HISTORICAL TUBAL LIGATION LUMBAR LAMINECTOMY PROCEDURE: HISTORICAL LUMB LAMINECTOMY; COMMENT: x2 HYSTERECTOMY PROCEDURE: HISTORICAL HYSTERECTOMY; COMMENT: w/ oophorectomy ESOPHAGOGASTRODUODENOSCOPY 05/31/04 PROCEDURE: NJ ESOPHAGOGASTRODUODENOSCOPY TRANSORAL DIAGNOSTIC; COMMENT: Normal, gastric bx COLONOSCOPY 05/31/04 PROCEDURE: HISTORICAL COLONOSCOPY; COMMENT: Up to terminal ileum, good preparation, hemorrhoids (repeat 05/31/2014) ESOPHAGOGASTRODUODENOSCOPY 12/2005 PROCEDURE: NJ ESOPHAGOGASTRODUODENOSCOPY TRANSORAL DIAGNOSTIC; COMMENT: erosive gastritis ESOPHAGOGASTRODUODENOSCOPY 06/12/07 PROCEDURE: NJ ESOPHAGOGASTRODUODENOSCOPY TRANSORAL DIAGNOSTIC; COMMENT: normal CHOLECYSTECTOMY PROCEDURE: HISTORICAL CHOLECYSTECTOMY COLONOSCOPY 01/2015 PROCEDURE: HISTORICAL COLONOSCOPY; COMMENT: incomplete procedure ESOPHAGOGASTRODUODENOSCOPY 01/2015 PROCEDURE: [place] ESOPHAGOGASTRODUODENOSCOPY TRANSORAL DIAGNOSTIC; COMMENT: Erosive gastritis COLONOSCOPY 07/04/15 PROCEDURE: HISTORICAL COLONOSCOPY; COMMENT: Poor preparation, rpt colonoscopy Medical History Medical History Date Comments Historical Medical DX 03/27/2007 DX:HTN Low back pain 03/27/2007 DX:Low back pain ; COMMENT: Had sugery on 1999 and 2002 and has metal rods on the lowe spine. Heartburn 03/27/2007 DX:Heartburn Family history of cardiovasc ular disease DX:Family history of cardiov ascular disease; COMMENT: sister with CABG Asthma DX:Asthma Glaucoma 11/29/2011 DX:Glaucoma History of hepatitis C 05/01/2010 DX:Histor y of hepatitis C; COMMENT: Chronic Hepatitis C Genotype 1A. Tx Started 06/20/15 Harvoni 90-400 mg for 24 Weeks. End Date 12/05/15. Viral load 0 on 12/05/15 = ETR. Viral load = 0 on 03/05/16 = SVR 12. Patient tried interferon based therapy but did not tolerate because of side effects. Family History Medical History Relation Name Comments Asthma Father Colon cancer Mother Breast cancer Sister 60's Relation Name Status Comments Father Mother Sister 60's Social History Tobacco Use Types Packs/Day Years Used Date Smoking Tobacco: Never Smokeless Tobacco: Never Alcohol Use Standard Drinks/Week Comments No 0 (1 standard drink = 0.6 oz pur e alcohol) Comments Unknown Sex and Gender Information Value Date Recorded Sex Assigned at Not on file Legal Sex Female 12:37 PM EST Gender Identity Not on file Sexual Orientation Not on file Obstetrics History Plan of Treatment Health Maintenance Due Date Last Done Comments Colorectal Cancer Screening: Colonoscopy 1950 Hepatitis A Vaccines (1 of 2 - Risk 2-dose series) 1968 Falls Risk Assessment 02/13/2022 Hepatitis C Screening 02/13/2022 Osteoporosis Screening (Bone Density Screening) 02/13/2022 Social Influencers of Health Screening 02/13/2022 Depression Screening 03/18/2024 RSV Immunization Adult Patients (1 - 1-dose 75+ series) 2024 COVID-19 Vaccine ( - season) 2024 03/21/2022, 07/25/2021, 02/04/2021, Additional history exists Influenza Vaccine (#1) 2024 , 12/12/2022, 12/18/2021, Additional history exists Hypertension/CHF/CAD Annual BMP Blood Test 06/10/2025 06/10/2024 Cholesterol Screening (Lipid Panel) 09/12/2027 09/11/2022 DTaP,Tdap,and Td Vaccines (4 - Td or Tdap) 06/03/2034 06/03/2024, 01/29/2018, 01/16/2008 Hepatitis B Vaccines Completed 09/29/2015, 04/28/2015, 03/25/2015, Additional history exists Pneumococcal Vaccine: 50+ Years Completed 07/20/2016, 11/24/2014, 11/24/2014, Additional history exists Zoster Vaccines Completed 12/18/2021, 10/17, 05/10/2014 Breast Cancer Screening Discontinued 05/30/19 24, 05/30/2023, 03/09/2022, Additional history exists HIB Vaccines Aged Out No longer eligi ble based on patient's age to complete this topic HPV Vaccines Aged Out No longer eligi ble based on patient's age to complete this topic IPV Vaccines Aged Out No longer eligi ble based on patient's age to complete this topic MMR Vaccines Aged Out No longer eligi ble based on patient's age to complete this topic Meningococcal ACWY Vaccine Aged Out N o longer eligible based on patient's age to complete this topic Meningococcal B Vaccine Aged Out No l onger eligible based on patient's age to complete this topic RSV Immunization Patients Under 20 months Aged Out No longer eligible based on patient's age to complete this topic Varicella Vaccines Aged Out No longer eligible based on patient's age to complete this topic Procedures Procedure Name Priority Date/Time Associated Diagnosis Comments BASIC METABOLIC PANEL Routine 06/10/2024 4:54 AM EDT Fracture of unspecified part of neck of left femur, subsequent encounter for closed fracture with routine healing Unspecified viral hepatitis C without hepatic coma SCREENING MAMMOGRAPHY BI 2-VIEW BREAST INC CAD Routine 05/30/2023 1:15 PM EDT Encounter for screening mammogram for malignant neoplasm of breast from Last 3 Months or Most Recently Relevant to Health Maintenance Results * (ABNORMAL) Basic metabolic panel (06/10/2024 4:54 AM EDT) Sodium 135 133 - 145 mmol/L LAB CHEMISTRY METHOD 06/10/2024 9:22 AM EDT [facility] Potassium 4.1 3.5 - 5.5 mmol/L LAB CHEMISTRY METHOD 06/10/2024 9:22 AM EDT [facility] Chloride 101 96 - 110 mmol/L LAB CHEMISTRY METHOD 06/10/2024 9:22 AM [facility] CO2 27 21 - 32 mmol/L LAB CHEMISTRY METHOD 06/10/2024 9:22 AM [facility] Anion Gap 7 3 - 11 LAB CHEMISTRY METHOD 06/10/2024 9:22 AM [facility] Glucose 115(H) 70 - 100 mg/dL LAB CHEMISTRY METHOD 06/10/2024 9:22 AM [facility] BUN 18 5 - 25 mg/dL LAB CHEMISTRY METHOD 06/10/2024 9:22 AM [facility] Creatinine 0.70 0.50 - 1.10 mg/dL LAB CHEMISTRY METHOD 06/10/2024 9:22 AM [facility] eGFR 91 >=60 mL/min/1. 73m2 LAB CHEMISTRY METHOD 06/10/2024 9:22 AM [facility] Comment:Calculation based on the Chronic Kidney Disease Epidemiology Collaboration (CKD-EPI) equation refit without adjustment for race. BUN/Creatinine Ratio 25.7 LAB CHEMISTRY METHOD 06/10/2024 9:22 AM [facility] Calcium 9.0 8.5 - 10.5 mg/dL LAB CHEMISTRY METHOD 06/10/2024 9:22 AM [facility] Blood Venous blood specimen / Unknown Venipuncture / Unknown 06/10/2024 4:54 AM EDT 06/10/2024 8:27 AM EDT us Neelima Rosario MD LAB BLOOD ORDERABLES Final Resu lt [facility] [address] [place] [address], * SCREENING MAMMOGRAPHY BI 2-VIEW BREAST INC CAD (05/30/2023 1:15 PM EDT) Anatomical Region Laterality Modality Radiographic Sierra ging 03/09/2022 2:39 PM EST Narrative 05/31/2023 2:30 PM EDT This is a summary report. The complete report is available in the patient's medical record. If you cannot access the medical record, please contact the sending organization for a detailed fax or copy. Full field digital screening tomosynthesis mammography, reviewed with CAD and compared to previous mammograms dating back to 10/03/2018 with most recent of 03/09/2022. The breasts are composed of fatty and fibroglandular tissue. No suspicious mass, architectural distortion or suspicious calcifications are identified. IMPRESSION: : No mammographic evidence of malignancy. BIRADS 1-Negative; N. 5 year breast cancer risk assessment 2.2 % Lifetime breast cancer risk assessment 5.4 % Breast cancer risk category Low (<15%) Procedure Note Geovanna Burns MD - 11/04/2023 This is a summary report. The complete report is available in thepatient's medical record. If you cannot access the medical record, pleasecontact the sending organization for a detailed fax or copy. Full field digital screening tomosynthesis mammography, reviewed with CADand compared to previous mammograms dating back to 10/03/2018 with mostrecent of 03/09/2022. The breasts are composed of fatty and fibroglandulartissue. No suspicious mass, architectural distortion or suspiciouscalcifications are identified. IMPRESSION: : No mammographic evidence of malignancy. BIRADS 1-Negative; N. 5 year breast cancer risk assessment 2.2 % Lifetime breast cancer risk assessment 5.4 % Breast cancer risk category Low (<15%) James Name IMG XR PROCEDURES Final Result from Last 3 Months or Most Recently Relevant to Health Maintenance [facility] [place] [address] [facility] [id number] MEDICAID - [place] Care Teams Day Haul Youth Supervisor Relationship Specialty Start Date End Date Name, MD James [address] [place], [place] PCP - General Internal Medicine 12/08/15
--- OUTSIDE RECORDS SUMMARY | 2024-12-28 12:20 | XMS_ITS | Encounter Summary ---
Author Organization [employer] Address [address] [place] [address] [address] [place] [address] Care Team Providers Care Materials Clerk Name Role Phone Name, Jaems REED Primary Care Provider [phone] Reason for Visit * Reason Onset Date Comments fyi 08/26/2024 Encounter Details Date Type Department Care Team ([facility] st Contact Info) Description 08/26/2024 Telephone [facility] MEDICINE [address] [place] [address] Name, MD James [address] [place], [place] [phone] fyi Social History Tobacco Use Types Packs/Day Years [...] encounter Miscellaneous Notes * Telephone Encounter - Marlen Dixon RN - 08/26/2024 3:17 PM EDT Noted * Telephone Encounter - Scarlett Arita - 08/26/2024 3:09 PM EDT Tc from [facility] to report pt will be starting home PT twice a week for 4 weeks and then 1x a week for 5 weeks. documented in this encounter Plan of Treatment Upcoming Encounters Date Type Department Care Team (Late st Contact Info) Description 12/31/2024 1:30 PM EDT Telemedicine [facility] MEDICINE [address] [place], [place] [phone] 01/27/2025 2:30 PM EST Medication Management [facility] MEDICINE [address] [place] [address] Meri Valdez, PharmD [address] [place] [address] 02/09/2025 1:00 PM EST Office Visit [facility] MEDICINE [address] [facility] [place] [address] Name, MD James [address] [place] [address] documented as of this encounter Goals Goal [...] documented as of this encounter Care Teams Materials Clerk Relationship Specialty Start Date End Date Name, MD James [address] [place] [address] PCP - General Family Medicine 05/20/15 [place] A 07/07/24 documented as of this encounter
--- OUTSIDE RECORDS SUMMARY | 2024-12-28 12:20 | XMS_ITS | Encounter Summary ---
Author Organization [employer] Address [address] [place] [address] [address] [place] [address] Care Team Providers Care Land Resource Specialist Name Role Phone Name, James REED Primary Care Provider [phone] Reason for Visit * Reason Onset Date Comments Nurse Triage 08/27/2024 Encounter Details Date Type Department Care Team (Late st Contact Info) Description 08/27/2024 Telephone [facility] MEDICINE [address] [place] [address] Name, MD James [address] [place], [place] [phone] Nurse Triage Social History Tobacco Use Types [...] encounter Miscellaneous Notes * Telephone Encounter - Vanessa Perez RN - 08/27/2024 4:28 PM EDT Tc to pt via S ID: [id number] to do a status check. Pt reports they're do fine, denies cp, sob,headaches, blurry vision, dizziness, difficulty walking, smoking or drinking alcohol. Pt reports they are currently in physical therapy due to them just having surgery. Pt reports they eat fruits butnot a lot of vegetables. Pt reports they do avoid eating salty foods. Pt report they have chronic pain and it has intensified due them having a fall a few moths ago. Pt rates their 7-8/10 all the time. Pt advised to take their otc pain meds and BP medications as prescribed. Pt encouraged to continue to check their BP everyday, discussed signs/sx when to notify our office or when to go to the ED to be evaluated ED precautions reviewed with pt and pt expressed understanding. Message sent to PCP as an FYI. * Telephone Encounter - Candy Murillo RN - 08/27/2024 1:33 PM EDT Call returned to Nicholas PINEDA with [facility] [phone] Reports pt having elevated BP reading again today of 161/82, this was after BP meds. Nicholas states this is an ongoing issue with patient. Pt currently on amlodipine, metoprolol,. Pt is checking BP three times a day and recording readings x 1 weekper VNA starting today. States pt also has losartan on med list but on hold currently until provider review. Pt was asymptomatic during visit today. Advised message from yesterday was sent to PCP Team nurses as PCP out of office for possible review with covering. Will forward this note again as high priority for team review. Nicholas requests call back to number above if an med changes. No cattle dehorner needed as this sql report writer speaks Greek. Call returned to Neha Navarro for triage below. No answer LVM to return call to [facility] triage line [phone]. Protocol Used: Blood Pressure - High (Adult) Protocol-Based Disposition: See in Office or Video Visit within 3 Days Override (Final) Disposition: Discuss with PCP and Callback by Nurse Today Override Reason: Other Override Notes: Has VNA daily and asymptomatic. PCP out of office. Video visit offer not recorded Positive Triage Question: * Systolic BP >= 160 OR Diastolic >= 100 * All higher-acuity triage questions were negative Care Advice Discussed: * High Blood Pressure * Reasons To Call Back - Headache, blurred vision, difficulty talking, or difficulty walking occurs - Chest pain or difficulty breathing occurs - You become worse * Telephone Encounter - Scarlett Arita - 08/27/2024 1:25 PM EDT Symptom: High Blood Pressure - Caller Reports Outcome: Schedule a same-day appointment or talk to a nurse or provider today Reason: Caller denied all higher acuity questions The caller accepted this outcome. [phone] Nicholas Geogre [facility] Reading today: 161/82 documented in this encounter Plan of Treatment Upcoming Encounters Date Type Department Care Team (Late st Contact Info) Description 12/31/2024 1:30 PM EDT Telemedicine [address] [address] 01/27/2025 2:30 PM EST Medication Management [address] [address] Puia, Meri, PharmD [address] [place] [phone] 02/09/2025 1:00 PM EST Office Visit [address] [phone] [place] [address] documented as of this encounter Goals Goal [...] documented as of this encounter Care Teams Land Resource Specialist Relationship Specialty Start Date End Date James Diaz MD [address] [place] [phone] PCP - General Family Medicine 05/20/15 [place] ANDRIAA 07/07/24 documented as of this encounter
[2024-12-28 14:33] LABS: Anion Gap 15 (12-20); Blood Urea Nitrogen 22 mg/dL (9-16); Calcium 9.8 mg/dL (8.4-10.2); Carbon Dioxide 29 mmol/L (22-29); Chloride 104 mmol/L (96-108); Estimated Glomerular Filt Rate > 60; Potassium 4.6 mmol/L (3.3-5.1); Sodium 143 mmol/L (135-145)
== END 2024-12-28 11:31 | disposition home or self-care (01) ==
LOC: HO.HVNA 11:30
PROVIDERS: PCP Internal Medicine Geriatric Medicine; Visit Provider Internal Medicine Geriatric Medicine
DX: I12.9 Hypertensive chronic kidney disease with stage 1 through stage 4 chronic kidney disease, or unspecified chronic kidney disease (principal); N18.9 Chronic kidney disease, unspecified; K52.9 Noninfective gastroenteritis and colitis, unspecified; E87.6 Hypokalemia
CPT/HCPCS: 36415; 80048